=== PATIENT | female | born 1945 | race Caucasian/White ===

== ENCOUNTER 2020-04-23 01:41 | Inpatient (IN) | payer MEDICARE, SELFPAY ==
[2020-04-23] VITALS (18 sets, daily range): BP systolic 95–131; BP diastolic 48–80; PULSE 56–145; RESP 12–19; TEMP 36.2–37.1; O2SAT 97–100; BMI 33.4
--- NOTE | 2020-04-23 01:50 | XR_ITS ---
EXAMINATION: XR CHEST CLINICAL INFORMATION: Shortness of breath COMPARISON: 01/05/2018 TECHNIQUE: Frontal view of the chest was obtained. FINDINGS: Cardiac leads overlie the chest. Right chest wall port terminates near the cavoatrial junction. The lungs are well expanded. Patchy bilateral airspace opacities are noted. No pleural effusion or pneumothorax. No edema. The cardiomediastinal silhouette is unremarkable. Chronic left rib deformities. XR/XR chest 1V IMPRESSION: Patchy bilateral airspace opacities are noted which could be infectious or inflammatory.
--- NOTE | 2020-04-23 01:50 | ECG_ITS ---
Test Reason : TACHY Blood Pressure : / mmHG Vent. Rate : 144 BPM Atrial Rate : 288 BPM P-R Int : 000 ms QRS Dur : 082 ms QT Int : 188 ms P-R-T Axes : -82 069 245 degrees QTc Int : 291 ms Atrial flutter with 2:1 A-V conduction Marked ST abnormality, possible inferior subendocardial injury Abnormal ECG When compared with ECG of 08-JUN-2012 22:44, Atrial flutter has replaced Sinus rhythm ST now depressed in Inferior leads Heart rate has increased Referred By: Lenin Granger Electronically Signed By:BERYL MARIN MD
[2020-04-23] MEDS: dilTIAZem HCL 50 MG/10 ML VIAL 10 MG IVPUSH (01:58)
[2020-04-23 02:06] LABS: Hematocrit 29.2 % (37-47); Hemoglobin 9.8 g/dl (12.0-16.0); Imm Gran Abs Auto 0.03 X10*3/uL (0.00-0.03); Imm Gran Pct Auto 0.6 % (0.0-0.4); Lymphocytes Absolute Auto 0.3 X10*3/uL (1.2-4.9); Lymphocytes Percent Auto 6.2 % (20-40); MANUAL DIFF FLAG SCAN; Mean Corpuscular HGB Conc 33.6 g/dl (31.0-35.0); Mean Corpuscular Hemoglobin 33.9 pg (27.0-33.0); Mean Platelet Volume 9.2 fL (9.4-12.3); Monocytes Percent Auto 0.8 % (2-11); Neutrophils Absolute Auto 4.8 X10*3/uL (2.0-8.3); Neutrophils Percent Auto 92.4 % (45-73); Platelet Count 123 X10*3/uL (160-400); Red Blood Count 2.89 X10*6/uL (4.20-5.50); Red Cell Distribution Width 12.9 % (11.0-16.0); SCAN SMEAR FLAG 1; White Blood Count 5.2 X10*3/uL (4.8-10.8)
[2020-04-23 02:14] LABS: INTERNATIONAL NORM RATIO 1.2 (0.9-1.1); Prothrombin Time 13.8 SEC (10.8-13.0)
[2020-04-23 02:16] LABS: Partial Thromboplastin Time 38.6 SEC (24.1-38.0)
[2020-04-23] MEDS: dilTIAZem HCL 50 MG/10 ML VIAL 20 MG IVPUSH (02:16)
[2020-04-23 02:30] LABS: SLIDE REVIEW VERIFIED
--- NOTE | 2020-04-23 02:35 | PC.NURSE ---
diltizem increased to 15mg/hr per protocol. md stringer.
--- NOTE | 2020-04-23 02:40 | PC.NURSE ---
0150:Patient arrives ambulatory c/o sudden onset of dizziness, palpitiations, and sob. Patient to hr via home so2 monitor c/o rate of 160. Patient brought into bed 4. IV established: 18 lac. 10mg IVP dilt given. 0203: dilt drip mixed and given. pt has a signficant history of poor med compliance Sometimes I take my meds. some times I dont like how they make me feel. Patient was cardioverted at [facility] on 04/21. it didn't work too well. My heart rate didn't go back to normal until 0600 the next day. First 10mg did not have effect. 2nd dose of 20mg Diltizem given IVP. 2nd IV established 18 rt wrist.
[2020-04-23 02:43] LABS: Alanine Aminotransferase 34 U/L (0-31); Albumin Level 4.1 g/dL (3.5-5.0); Alkaline Phosphatase 64 U/L (39-117); Anion Gap 12 (12-20); Aspartate Amino Transferase 27 U/L (5-31); Bilirubin Direct 0.2 mg/dL (0.0-0.5); Bilirubin Total 0.2 mg/dL (0.0-1.0); Blood Urea Nitrogen 20 mg/dL (9-16); Calcium 8.6 mg/dL (8.4-10.2); Carbon Dioxide 28 mmol/L (22-29); Chloride 95 mmol/L (96-108); Creatinine Clr Calc Pharmacy 38.7; Estimated Glomerular Filt Rate 40; Glucose Random 124 mg/dL (60-115); Potassium 4.6 mmol/l (3.3-5.1); Sodium 130 mmol/L (135-145); Total Protein 6.8 g/dL (6.5-8.0)
[2020-04-23 02:48] LABS: Troponin-I High Sensitivity < 3.5 ng/L (<3.5-17.0)
--- NOTE | 2020-04-23 03:20 | CT_ITS ---
EXAMINATION: CT CHEST WITHOUT CONTRAST CLINICAL INFORMATION: Abnormal chest x-ray. History of lung cancer. COMPARISON: Chest radiograph from today. CT 07/10/2011 TECHNIQUE: Multidetector volumetric CT imaging of the chest was done. Axial MIP volume rendering provided. Sagittal and coronal reformatted images were obtained. This CT examination was performed using dose optimization techniques as appropriate, variously including the following: *Automated exposure control *Adjustment of mA and/or kV according to patient size (this includes techniques or standardized protocols for targeted exams where dose is matched to indication/reason for exam; i.e. extremities or head) *Use of iterative reconstruction technique DLP: 292 mGy-cm FINDINGS: LUNGS: The central airways are patent. Minimal streaky subpleural opacities favoring scarring. There is no dense consolidation. No pneumothorax. No suspicious pulmonary nodule. Nodularity along the periphery of the left midlung associated with chronic deformity of the ribs. MEDIASTINUM: Normal heart size. Coronary artery calcifications are present. Right internal jugular central venous catheter terminates at the right atrium. No mediastinal lymphadenopathy. No pericardial effusion. PLEURA: There is no pleural effusion. No pleural mass or thickening. AXILLA: No lymphadenopathy. UPPER ABDOMEN: No acute abnormality. Exophytic left renal cyst. OSSEOUS STRUCTURES: No acute or suspicious osseous abnormality. Chronic healed left rib fractures. CT/CT chest wo con IMPRESSION: No acute finding in the lungs. Areas of scarring are noted.
--- NOTE | 2020-04-23 03:28 | PC.NURSE ---
patient reports she was feeling very upset prior to this episode of tachycardia. patient reports feeling depressed due to having life expectancy only until october of this year. patient further feels upset that she must leave her residence due to finances. patient refused bedpan. patient assisted to commode.
[2020-04-23] MEDS: LORazepam 1 MG TABLET PO ×2 (03:40→20:11)
--- NOTE | 2020-04-23 03:56 | PM.IMHP ---
History of Present Illness Date of Service: 04/23/20 Chief Complaint: palpitations 89-year-old female with past medical history stage IV small cell lung cancer , DVT on Xarelto, hypertension fibromyalgia, diabetes, autoimmune disease who presents to the hospital with complaints of palpitation. Patient reports that on Monday she started feeling chest tightness which was localized midsternally, felt like heavy pressure like, radiating to the left arm, associated with shortness of breath. This chest pain occurred at rest with no relieving factors. Intermittent. patient reports that on Monday she went to her safety associate oncologist's office to start a new chemo and at their office was found to have a fluctuating heart rate between 33-177. Patient was feeling dizzy but had no chest pain at that time and no shortness of breath. She was sent back to the hospital and was diagnosed with AFib. Patient reports that her Xarelto was adjusted and her diltiazem was increased from 120-180 mg daily. Patient reports that she returned to the hospital today because she measured her heart rate prior to to going to bed and found to be in the 140s to 150s with dizziness. She currently has no shortness of breath, no chest pain, no dizziness, no cough or sputum production. She has no fever or chills. She reports nausea with no vomiting. No abdominal pain. No diarrhea but has constipation, no urinary symptoms and no lower extremity edema. No sick contacts and no recent travel. on arrival to the ED patient's heart rate was found to be 144, blood pressure 110/80 otherwise hemodynamically stable Labs are significant for hemoglobin of 9.8, hematocrit of 29.2,MCV of 101, platelet count of 123, PT of 13.8, INR of 1.2, sodium of 130, chloride of 95, BUN of 20, with a creatinine of 1.31, troponin of less than 3.5, BNP pending, chest x-ray shows patchy bilateral airspace opacities COVID19 19 pending past medical history: DVT on Xarelto, stage IV small cell lung cancer, hypertension, diabetes , cervical cancer status post total hysterectomy, fibromyalgia, history of CHF past surgical history: total hysterectomy, polyp removal Family history: Significant for cancer including pancreatic and lung, autoimmune disease, DVT social history: comes from home, ambulance independently , denies tobacco alcohol or illicit drugs at this time Review of Systems Review of Systems: Yes all other systems are reviewed and are negative FOR[facility]LY [facility] Medical History (Updated 04/23/20 @ 04:19 by Ursula Concepcion MD) Afib Diabetes mellitus type 2 in obese DVT (deep venous thrombosis) Fibromyalgia History of CHF (congestive heart failure) Hx of [facility] use of blood thinners Hypertension Lung cancer Ovarian tumor Small cell lung cancer Family History (Updated 04/23/20 @ 04:00 by Lenin Granger DO) Other Family history non-contributory Social History Alcohol intake: never Smoking Status: Former smoker Smoked in Last 30 Days: No Use of substances other than those prescribed or required for medical reasons: No Advance Directives: No Meds Allergies Allergy/AdvReac Type Severity Reaction Status Date / Time Sulfa (Sulfonamide Allergy Severe ANAPHYLAXIS, Unverified 04/23/20 02:42 Antibiotics) swelling sulfamethoxazole Allergy Severe ANAPHYLAXIS Unverified 04/23/20 02:42 [From BACTRIM] trimethoprim [From BACTRIM] Allergy Severe ANAPHYLAXIS Unverified 04/23/20 02:42 Wellbutrin Allergy Unknown seizures Unverified 04/23/20 02:42 Home Medications Medication Instructions Recorded Confirmed Type albuterol sulfate INHALATION 04/23/20 History budesonide-formoterol [Symbicort] INHALATION 04/23/20 History dexamethasone tab PO 04/23/20 History diltiazem HCl 1 cap PO DAILY 04/23/20 04/23/20 History diphenhydramine HCl [M-Dryl] PO 04/23/20 History duloxetine 1 cap PO DAILY 04/23/20 04/23/20 History fentanyl 1 patch TOPICAL Q3D 04/23/20 04/23/20 History hydrochlorothiazide 1 tab PO DAILY 04/23/20 04/23/20 History hydrocodone-acetaminophen 1 tab PO Q6H PRN 04/23/20 04/23/20 History lorazepam 1 tab PO BEDTIME PRN 04/23/20 04/23/20 History lorazepam 1 tab PO TID PRN 04/23/20 04/23/20 History metformin 1 tab PO BID 04/23/20 04/23/20 History morphine 1 tab PO Q12H 04/23/20 04/23/20 History omeprazole 1 cap PO BID 04/23/20 04/23/20 History pravastatin 40 mg PO 04/23/20 History rivaroxaban [Xarelto] 1 tab PO DAILY 04/23/20 04/23/20 History tiotropium bromide [Spiriva with 1 cap INHALATION DAILY 04/23/20 04/23/20 History HandiHaler] trazodone 1 - 2 tab PO BEDTIME 04/23/20 04/23/20 History zolpidem 1 tab PO BEDTIME PRN 04/23/20 04/23/20 History Physical Exam Vital Signs and Narrative: Vital Signs: Last Vital Signs Temp 98.5 F 04/23/20 01:47 Pulse 108 H 04/23/20 03:26 Resp 18 04/23/20 03:26 BP 111/67 04/23/20 03:26 Pulse Ox 100 04/23/20 03:26 Body Mass Index 33.4 Const: General: cooperative and no acute distress Orientation/consciousness: patient oriented x3 Eyes: General: appearance normal, both eyes and all related structures Pupils: Equal, round and reactive pupils present Resp: Effort & Inspection: normal respiratory effort and able to speak in complete sentences Auscultation: clear to auscultation bilaterally Cardio: Other: irregular rhythm, with a heart rate of 110s to 140s GI: Palpation (GI): Soft to palpation Auscultation: normal bowel sounds Skin: General skin exam: no rashes or lesions noted Neuro: General: patient oriented x3 Cranial nerves: Yes Equal, round and reactive pupils present Cognition (Neuro): normal cognition Extrem: General: Yes normal to inspection and Yes no pedal edema Results Labs CBC and Chem 7: 04/23/20 02:00 04/23/20 02:00 Labs: Laboratory Results - last 24 hr 04/23/20 04/23/20 04/23/20 02:00 02:00 02:00 MCV 101.0 H MCH 33.9 H MCHC 33.6 RDW 12.9 Plt Count 123 L MPV 9.2 L Immature Gran % (Auto) 0.6 H Neut % (Auto) 92.4 H Lymph % (Auto) 6.2 L [place] % (Auto) 0.8 L Eos % (Auto) 0.0 Baso % (Auto) 0.0 Lymph # (Auto) 0.3 L [place] # (Auto) 0.0 L Eos # (Auto) 0.0 Baso # (Auto) 0.0 Abs Immat Gran (auto) 0.03 Absolute Neuts (auto) 4.8 Absolute Nucleated RBC 0.000 Nucleated RBC % (auto) 0.0 Smear Tech's Comments VERIFIED PT 13.8 H INR 1.2 H APTT 38.6 H Anion Gap 12 Estim Creat Clear Calc 38.7 Estimated GFR 40 Random Glucose 124 H Calcium 8.6 Total Bilirubin 0.2 Direct Bilirubin 0.2 AST 27 ALT 34 H Alkaline Phosphatase 64 Troponin I High Sens Total Protein 6.8 Albumin 4.1 04/23/20 02:00 MCV MCH MCHC RDW Plt Count MPV Immature Gran % (Auto) Neut % (Auto) Lymph % (Auto) [place] % (Auto) Eos % (Auto) Baso % (Auto) Lymph # (Auto) [place]yer # (Auto) Eos # (Auto) Baso # (Auto) Abs Immat Gran (auto) Absolute Neuts (auto) Absolute Nucleated RBC Nucleated RBC % (auto) Smear Tech's Comments PT INR APTT Anion Gap Estim Creat Clear Calc Estimated GFR Random Glucose Calcium Total Bilirubin Direct Bilirubin AST ALT Alkaline Phosphatase Troponin I High Sens < 3.5 Total Protein Albumin Imaging Radiologist's Impressions: Impressions Chest X-Ray 04/23/20 01:50 IMPRESSION: Patchy bilateral airspace opacities are noted which could be infectious or inflammatory. Assessment and Plan (1) Atrial fibrillation with rapid ventricular response: Status: Acute (2) History of CHF (congestive heart failure): Status: Acute (3) Hypertension: Status: Acute (4) DVT (deep venous thrombosis): Status: Acute (5) Fibromyalgia: Status: Acute (6) Diabetes mellitus type 2 in obese: Status: Acute (7) Small cell lung cancer: Status: Acute 74 year old female with past medical history as above who presents to the hospital with palpitations found to have AFib with RVR. # AFib with RVR - appears to be new onset, patient does report history of CHF, denies any history of coronary artery disease - chest x-ray is revealing bilateral infiltrates, CT scan of the chest is pending - troponin negative - BNP is pending - Started on diltiazem drip in the ED, currently heart rate maintaining between 110s to 130s, with stable BP Plan: - Continue diltiazem drip - patient reports that she had an echocardiogram done at [facility] this week, will try to obtain records, otherwise will repeat echocardiogram - continue Xarelto, shortness of better blockage per Cardiology once patient off of diltiazem drip - cardiology consult - follow BNP and CT of the chest # history of congestive heart failure - patient rep history of heart failure but she is not on any diuretic at this time - Denies any shortness of breath, PND, orthopnea, or lower extremity edema plan: - Will obtain a BNP, chest x-ray is revealing infiltrates which is concerning for infection and not necessarily fluid overload - Will monitor and obtain recent echocardiogram from outside hospital # bilateral infiltrates - patient has no cough, no fever, no leukocytosis - CT scan, COVID-19, BNP pending - will follow results of CT scan and treat accordingly # anemia - microcytic - will order B12 as well as folic acid - threshold to transfuse hemoglobin of 7 # hypertension - stable - on diltiaze drip - continue hydrochlorothiazide - convert to p.o. medications once heart rate is more controlled # diabetes - on metformin- will hold - start low-dose sliding scale insulin, diabetic diet # small cell lung cancer - continue pain control - continue current treatment outpatient # fibromyalgia - continue duloxetine # anxiety - continue lorazepam DVT prophylaxis Xarelto
--- NOTE | 2020-04-23 03:59 | ED_ITS ---
HPI - Arrhythmia/Palpitations General Chief Complaint: Arrhythmia/Palpitations Stated Complaint: Palpitations Time Seen by Provider: 04/23/20 01:50 Source: patient Mode of arrival: ambulatory History of Present Illness HPI narrative: 74-year-old female with a recent diagnosis of atrial fibrillation, came in for rapid heart rate. Patient states approximately 7 or 20:00 tonight felt her heart race. States it continued to fluctuate up and down however most recently prior to ER visit felt a little dizzy? and came into the emergency department. Patient experienced no chest pain. No diaphoresis. No shortness of breath. Patient denies recent illness with fevers or chills. Denies nausea vomiting. Denies diaphoresis I was present on arrival to emergency department secondary to heart rate in the 150s MD complaint: heart racing Duration: intermittent Severity: moderate Related Data Home Medications Medication Instructions Recorded Confirmed albuterol sulfate INHALATION 04/23/20 budesonide-formoterol [Symbicort] INHALATION 04/23/20 dexamethasone tab PO 04/23/20 diltiazem HCl 1 cap PO DAILY 04/23/20 04/23/20 diphenhydramine HCl [M-Dryl] PO 04/23/20 duloxetine 1 cap PO DAILY 04/23/20 04/23/20 fentanyl 1 patch TOPICAL Q3D 04/23/20 04/23/20 hydrochlorothiazide 1 tab PO DAILY 04/23/20 04/23/20 hydrocodone-acetaminophen 1 tab PO Q6H PRN 04/23/20 04/23/20 lorazepam 1 tab PO BEDTIME PRN 04/23/20 04/23/20 lorazepam 1 tab PO TID PRN 04/23/20 04/23/20 metformin 1 tab PO BID 04/23/20 04/23/20 morphine 1 tab PO Q12H 04/23/20 04/23/20 omeprazole 1 cap PO BID 04/23/20 04/23/20 pravastatin 40 mg PO 04/23/20 rivaroxaban [Xarelto] 1 tab PO DAILY 04/23/20 04/23/20 tiotropium bromide [Spiriva with 1 cap INHALATION DAILY 04/23/20 04/23/20 HandiHaler] trazodone 1 - 2 tab PO BEDTIME 04/23/20 04/23/20 zolpidem 1 tab PO BEDTIME PRN 04/23/20 04/23/20 Allergies Allergy/AdvReac Type Severity Reaction Status Date / Time Sulfa (Sulfonamide Allergy Severe ANAPHYLAXIS, Unverified 04/23/20 02:42 Antibiotics) swelling sulfamethoxazole Allergy Severe ANAPHYLAXIS Unverified 04/23/20 02:42 [From BACTRIM] trimethoprim [From BACTRIM] Allergy Severe ANAPHYLAXIS Unverified 04/23/20 02:42 Wellbutrin Allergy Unknown seizures Unverified 04/23/20 02:42 Review of Systems Review of Systems: Constitutional : No Weight loss, No Fever, No Chills, No Night Sweats, No Fatigue, No Malaise ENT/Mouth : No Hearing loss, No Ear Pain, No Nasal Congestion, No Sinus Pain, No Hoarseness, No sore throat, No Rhinorrhea, No Swallowing Difficulty Eyes: No Eye Pain, No Swelling, No Redness, No Foreign Body, No Discharge, No Vision Changes Cardiovascular : No Chest Pain, No SOB, No Dyspnea on Exertion, No Orthopnea, No Edema, positive Palpitations Respiratory : No Cough, No Sputum, No Wheezing, No Smoke Exposure, No Dyspnea Gastrointestinal : No Nausea, No Vomiting, No Diarrhea, No Constipation, No abdominal Pain, No Hematochezia, No Melena Genitourinary : no irregular bleeding, No Dysuria, No Urinary Frequency, No Hematuria, No Urinary Incontinence, No Urgency, No Flank Pain, No Urinary Flow Changes, No Hesitancy Musculoskeletal : No joint pain, No Myalgias, No Joint Swelling Skin : No Skin Lesions, No rash Neuro : No Weakness, No Numbness, No Paresthesias, No Loss of Consciousness, mild Dizziness, No Headache Psych : No Anxiety/Panic, No Depression, No SI/HI/AH/VH, No Social Issues, Heme/Lymph: No Bruising, No Bleeding,No Lymphadenopathy Endocrine : No Polyuria, No Polydipsia, No Temperature Intolerance [facility] Past Medical History Medical History (Updated 04/23/20 @ 04:19 by Ursula Concepcion MD) Afib Diabetes mellitus type 2 in obese DVT (deep venous thrombosis) Fibromyalgia History of CHF (congestive heart failure) Hx of nursing home use of blood thinners Hypertension Lung cancer Ovarian tumor Small cell lung cancer Family History Family History (Updated 04/23/20 @ 04:00 by Lenin Granger DO) Other Family history non-contributory Social History Social History Alcohol intake: never Smoking Status: Former smoker Smoked in Last 30 Days: No Use of substances other than those prescribed or required for medical reasons: No Advance Directives: No Physical Exam Vital Signs: Vital Signs: Last Vital Signs Temp 98.5 F 04/23/20 01:47 Pulse 108 H 04/23/20 03:26 Resp 18 04/23/20 03:26 BP 111/67 04/23/20 03:26 Pulse Ox 100 04/23/20 03:26 Body Mass Index 33.4 Vital signs reviewed Appearance: Alert. Oriented X3. Mild acute distress. Eyes: Pupils equal, round and reactive to light. ENT: Pharynx normal. Neck: Normal inspection. Neck supple. No lymph nodes noted. No crepitus CVS: Elevated heart rate and abnormal rhythm. Pulses normal. Normal S1 and S2 Respiratory: No respiratory distress. Breath sounds normal. No Wheezing. No rales Abdomen: Soft and nontender. No rigidity. No distention. good BS x4 Skin: Skin warm and dry. Normal skin color. Normal skin turgor. Extremities: No lower extremity edema. Neurovascular intact to all extremities. No Lacerations. No Rash Neuro: Oriented X 3. No motor deficit. No sensory deficit. Moving all extermities. No slurred speech. Course Course Course Narrative: Multiple re-evaluations were done by me while in the emergency department. Patient's heart rate was in the 150s, in which 10 mg of Cardizem IV push did not work. I then reordered a 20 mg dose of IV Cardizem which did work. Heart rate then succeeded down to 90s patient was then started on a drip throughout ER visit patient's heart rate did fluctuate up to 120 in which the Cardizem drip was increased under the direction of me. Patient experienced no chest pain throughout ER visit. Chest x-ray does show bilateral opacities however no white count and no fevers or chills. Will get a CT scan noncontrast to rule out any infection possibility I spoke with hospitalist will admit patient Dr. Cunningham Throughout ER visit patient has not lost consciousness nor has become altered. Patient agrees with admission CT scan of the chest shows no acute infection. Will not treat I do not have a suspicion of infection at this point. COVID negative Laboratory and radiology results reviewed by me MDM - Arrhythmia/Palpitations MDM Narrative Medical decision making narrative: 74-year-old female with a history of breast cancer with recent diagnosis of atrial fibrillation, was evaluated in the emergency department for rapid AFib. Treated and maintained on IV Cardizem. Will need admission for further treatment and evaluation Medical Records Attestation: I reviewed the patient's medical records. Lab Data Attestation: I reviewed the patient's lab results. Result diagrams: 04/23/20 02:00 04/23/20 02:00 Labs: Lab Results 04/23/20 04/23/20 04/23/20 Range/Units 02:00 02:00 02:00 WBC 5.2 (4.8-10.8) X10*3/uL RBC 2.89 L (4.20-5.50) X10*6/uL Hgb 9.8 L (12.0-16.0) g/dl Hct 29.2 L (37-47) % MCV 101.0 H (80-98) fL MCH 33.9 H (27.0-33.0) pg MCHC 33.6 (31.0-35.0) g/dl RDW 12.9 (11.0-16.0) % Plt Count 123 L (160-400) X10*3/uL MPV 9.2 L (9.4-12.3) fL Immature Gran % (Auto) 0.6 H (0.0-0.4) % Neut % (Auto) 92.4 H (45-73) % Lymph % (Auto) 6.2 L (20-40) % [place] % (Auto) 0.8 L (2-11) % Eos % (Auto) 0.0 (0-4) % Baso % (Auto) 0.0 (0-2) % Lymph # (Auto) 0.3 L (1.2-4.9) X10*3/uL [place] # (Auto) 0.0 L (0.1-1.2) X10*3/uL Eos # (Auto) 0.0 (0.0-0.4) X10*3/uL Baso # (Auto) 0.0 (0.0-0.2) X10*3/uL Abs Immat Gran (auto) 0.03 (0.00-0.03) X10*3/uL Absolute Neuts (auto) 4.8 (2.0-8.3) X10*3/uL Absolute Nucleated RBC 0.000 (0.0-0.012) X10*3/uL Nucleated RBC % (auto) 0.0 (0.0-0.2) /100WBC Smear Tech's Comments VERIFIED PT 13.8 H (10.8-13.0) SEC INR 1.2 H (0.9-1.1) APTT 38.6 H (24.1-38.0) SEC Sodium 130 L (135-145) mmol/L Potassium 4.6 (3.3-5.1) mmol/l Chloride 95 L (96-108) mmol/L Carbon Dioxide 28 (22-29) mmol/L Anion Gap 12 (12-20) BUN 20 H (9-16) mg/dL Creatinine 1.31 (0.5-1.4) mg/dL Estim Creat Clear Calc 38.7 Estimated GFR 40 Random Glucose 124 H (60-115) mg/dL Calcium 8.6 (8.4-10.2) mg/dL Total Bilirubin 0.2 (0.0-1.0) mg/dL Direct Bilirubin 0.2 (0.0-0.5) mg/dL AST 27 (5-31) U/L ALT 34 H (0-31) U/L Alkaline Phosphatase 64 (39-117) U/L Troponin I High Sens (<3.5-17.0) ng/L B-Natriuretic Peptide (<100) pg/mL Total Protein 6.8 (6.5-8.0) g/dL Albumin 4.1 (3.5-5.0) g/dL Coronavirus (PCR) (Negative) Influenza Type A (PCR) (Negative) Influenza Type B (PCR) (Negative) RSV RNA Qual (PCR) (Negative) 04/23/20 04/23/20 Range/Units 02:00 03:45 WBC (4.8-10.8) X10*3/uL RBC (4.20-5.50) X10*6/uL Hgb (12.0-16.0) g/dl Hct (37-47) % MCV (80-98) fL MCH (27.0-33.0) pg MCHC (31.0-35.0) g/dl RDW (11.0-16.0) % Plt Count (160-400) X10*3/uL MPV (9.4-12.3) fL Immature Gran % (Auto) (0.0-0.4) % Neut % (Auto) (45-73) % Lymph % (Auto) (20-40) % [place] % (Auto) (2-11) % Eos % (Auto) (0-4) % Baso % (Auto) (0-2) % Lymph # (Auto) (1.2-4.9) X10*3/uL [place] # (Auto) (0.1-1.2) X10*3/uL Eos # (Auto) (0.0-0.4) X10*3/uL Baso # (Auto) (0.0-0.2) X10*3/uL Abs Immat Gran (auto) (0.00-0.03) X10*3/uL Absolute Neuts (auto) (2.0-8.3) X10*3/uL Absolute Nucleated RBC (0.0-0.012) X10*3/uL Nucleated RBC % (auto) (0.0-0.2) /100WBC Smear Tech's Comments PT (10.8-13.0) SEC INR (0.9-1.1) APTT (24.1-38.0) SEC Sodium (135-145) mmol/L Potassium (3.3-5.1) mmol/l Chloride (96-108) mmol/L Carbon Dioxide (22-29) mmol/L Anion Gap (12-20) BUN (9-16) mg/dL Creatinine (0.5-1.4) mg/dL Estim Creat Clear Calc Estimated GFR Random Glucose (60-115) mg/dL Calcium (8.4-10.2) mg/dL Total Bilirubin (0.0-1.0) mg/dL Direct Bilirubin (0.0-0.5) mg/dL AST (5-31) U/L ALT (0-31) U/L Alkaline Phosphatase (39-117) U/L Troponin I High Sens < 3.5 (<3.5-17.0) ng/L B-Natriuretic Peptide 252 H (<100) pg/mL Total Protein (6.5-8.0) g/dL Albumin (3.5-5.0) g/dL Coronavirus (PCR) NEGATIVE (Negative) Influenza Type A (PCR) NEGATIVE (Negative) Influenza Type B (PCR) NEGATIVE (Negative) RSV RNA Qual (PCR) NEGATIVE (Negative) ECG Data Attestation: I personally reviewed and interpreted this ECG as follows: Interpretation: EKG 1. At 00:51 144 beats per minute, a flutter, normal axis. Nonspecific ST changes EKG 2. At 02:17 82 beats per minute atrial flutter. Normal axis nonspecific ST- T changes Critical Care Time Critical Care Time Critical Care Time: Yes Total Critical Care Time: 35 Attestation: I attest to my critical time spent with patient Discharge Plan Discharge Clinical Impression: Anxiety, Palpitations, Atrial fibrillation with rapid ventricular response Patient Disposition: Admitted As Inpatient
[2020-04-23 04:16] LABS: B Type Natriuretic Peptide 252 pg/mL (<100)
[2020-04-23 04:38] LABS: Influenza A PCR NEGATIVE (Negative); Influenza B PCR NEGATIVE (Negative); Resp Syncy Virus RNA Qual PCR NEGATIVE (Negative); SARS COV2 PCR INHOUSE NEGATIVE (Negative)
[2020-04-23] MEDS: dilTIAZem HCL 125 MG in 0.9 % Sodium Chloride 100 ML 15 MG IVCONT (07:05)
[2020-04-23 08:03] LABS: Glucose, Whole Blood 121 mg/dL (60-115)
[2020-04-23] MEDS: DULoxetine HCl 30 MG CAPSULE.DR PO (08:26)
[2020-04-23] MEDS: Omeprazole 20 MG CAPSULE.DR PO ×2 (08:26→20:07)
[2020-04-23] MEDS: hydroCHLOROthiazide 25 MG TABLET PO (08:26)
[2020-04-23] MEDS: Morphine Sulfate ER 30 MG TABLET.ER PO (08:27)
[2020-04-23 09:00] LABS: Folate 9.6 ng/mL (> or = 4.0); Vitamin B12 309 pg/mL (200-900)
[2020-04-23] MEDS: Rivaroxaban 15 MG TABLET PO (09:23)
[2020-04-23] MEDS: 0.9 % Sodium Chloride Flush 3 ML SYRINGE IVFLUSH ×2 (09:23→16:57)
[2020-04-23] MEDS: dilTIAZem HCL CD 240 MG CAP.ER.DEG PO (10:08)
--- NOTE | 2020-04-23 10:24 | MHC.CM.PN ---
CM met with Patient. Patient presently lives with 2 disabled individuals and she has been their Principal Strategist. Patient has found other homes for these individuals r/t her own health issues and she will now be living alone in a 2 family house with her 2 Sons living upstairs. Patient's goal is to return home, no services, as before and CM has initiated and will follow for dc planning. IMM addressed with Patient and the original has been given to her and a copy has been placed on the chart. PCP is Dr. Rad Jane and Patient's Sister is her HCP.
[2020-04-23 11:32] LABS: Glucose, Whole Blood 101 mg/dL (60-115)
--- NOTE | 2020-04-23 11:56 | P.CONCA_ITS ---
History of Present Illness History of Present Illness Date of Service: 04/23/20 Requesting physician: Stephenie Gore Chief complaint: Afib with RVR Narrative: 74-year-old female with small cell lung cancer who is on chemotherapy and is presenting with the tachycardia and atrial fibrillation with rapid ventricular response. She said she has been on a new chemotherapy agent and received it last . That made her very tired and she was not feeling well after the chemotherapy. She said in the preceding week she presented to [facility] with chest heaviness and underwent CT chest to rule out pulmonary embolism. She said at that time she had atrial fibrillation and was cardioverted. Last night she was lying in bed and fell mild left-sided pressure and she checked her heart rate which was 160 beats per minutes. She decided to come to the ER. She is saying she did not feel any palpitations. Since then she received Cardizem and it appears this morning she reverted back to sinus rhythm. She has factor 5 Leiden reportedly and had DVTs in the past and has been on Xarelto. She has some dyspnea but no significant change in symptoms. Review of Systems Review of Systems: No symptoms right now. 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 If so, by whom?: No Do you feel safe in your current relationship?: No Is there a partner from a previous relationship who is making you feel unsafe now?: No Are you made to feel afraid or neglected: No Advance Directives: No Do you have thoughts of harming others: None Do you have a plan to hurt others: No Plan Recently lost weight without trying: No service: No Current occupational status: retired Meds Allergies Allergy/AdvReac Type Severity Reaction Status Date / Time Sulfa (Sulfonamide Allergy Severe ANAPHYLAXIS, Verified 04/23/20 06:30 Antibiotics) swelling sulfamethoxazole Allergy Severe ANAPHYLAXIS Verified 04/23/20 06:30 [From BACTRIM] trimethoprim [From BACTRIM] Allergy Severe ANAPHYLAXIS Verified 04/23/20 06:30 Wellbutrin Allergy Unknown seizures Verified 04/23/20 06:30 Home Medications Medication Instructions Recorded Confirmed Type albuterol sulfate 1 inh INHALATION QID PRN 04/23/20 04/23/20 History budesonide-formoterol [Symbicort] 2 puff INHALATION BID 04/23/20 04/23/20 History dexamethasone 4 mg PO BID 04/23/20 04/23/20 History diltiazem HCl 1 cap PO DAILY 04/23/20 04/23/20 History diphenhydramine HCl [M-Dryl] 12.5 mg PO QID PRN 04/23/20 04/23/20 History duloxetine 1 cap PO DAILY 04/23/20 04/23/20 History fentanyl 1 patch TOPICAL Q3D 04/23/20 04/23/20 History hydrochlorothiazide 1 tab PO DAILY 04/23/20 04/23/20 History hydrocodone-acetaminophen 1 tab PO Q6H PRN 04/23/20 04/23/20 History lorazepam 1 tab PO BEDTIME PRN 04/23/20 04/23/20 History lorazepam 1 tab PO TID PRN 04/23/20 04/23/20 History metformin 1 tab PO BID 04/23/20 04/23/20 History morphine 1 tab PO Q12H 04/23/20 04/23/20 History omeprazole 1 cap PO BID 04/23/20 04/23/20 History pravastatin 40 mg PO BEDTIME 04/23/20 04/23/20 History rivaroxaban [Xarelto] 1 tab PO DAILY 04/23/20 04/23/20 History tiotropium bromide [Spiriva with 1 cap INHALATION DAILY 04/23/20 04/23/20 History HandiHaler] trazodone 1 - 2 tab PO BEDTIME 04/23/20 04/23/20 History zolpidem 1 tab PO BEDTIME PRN 04/23/20 04/23/20 History Physical Exam Vital Signs: Vital Signs: Last Vital Signs Temp 98.3 F 04/23/20 11:37 Pulse 72 04/23/20 11:37 Resp 16 04/23/20 11:37 BP 106/55 L 04/23/20 11:37 Pulse Ox 99 04/23/20 11:37 Body Mass Index 33.4 GENERAL APPEARANCE: in no acute distress. HEENT: unremarkable. HEAD: normocephalic, atraumatic. NECK/THYROID: no carotid bruit, Mild JVD. SKIN: no suspicious lesions, warm and dry. HEART: no murmurs, regular rate and rhythm, S1, S2 normal. LUNGS: few crackles at bases. ABDOMEN: normal, bowel sounds present, soft, nontender, nondistended. EXTREMITIES: no clubbing, cyanosis, or edema. PERIPHERAL PULSES: equal. NEUROLOGIC: nonfocal, alert and oriented. PSYCH: mood/affect full range. Results Labs and Meds Result diagrams: 04/23/20 02:00 04/23/20 02:00 Lab results: Laboratory Results - last 24 hr 04/23/20 04/23/20 04/23/20 02:00 02:00 02:00 WBC 5.2 RBC 2.89 L Hgb 9.8 L Hct 29.2 L MCV 101.0 H MCH 33.9 H MCHC 33.6 RDW 12.9 Plt Count 123 L MPV 9.2 L Immature Gran % (Auto) 0.6 H Neut % (Auto) 92.4 H Lymph % (Auto) 6.2 L [place] % (Auto) 0.8 L Eos % (Auto) 0.0 Baso % (Auto) 0.0 Lymph # (Auto) 0.3 L [place] # (Auto) 0.0 L Eos # (Auto) 0.0 Baso # (Auto) 0.0 Abs Immat Gran (auto) 0.03 Absolute Neuts (auto) 4.8 Absolute Nucleated RBC 0.000 Nucleated RBC % (auto) 0.0 Smear Tech's Comments VERIFIED PT 13.8 H INR 1.2 H APTT 38.6 H Sodium 130 L Potassium 4.6 Chloride 95 L Carbon Dioxide 28 Anion Gap 12 BUN 20 H Creatinine 1.31 Estim Creat Clear Calc 38.7 Estimated GFR 40 POC Glucose Random Glucose 124 H Calcium 8.6 Total Bilirubin 0.2 Direct Bilirubin 0.2 AST 27 ALT 34 H Alkaline Phosphatase 64 Troponin I High Sens B-Natriuretic Peptide Total Protein 6.8 Albumin 4.1 Vitamin B12 Folate Coronavirus (PCR) Influenza Type A (PCR) Influenza Type B (PCR) RSV RNA Qual (PCR) 04/23/20 04/23/20 04/23/20 02:00 03:45 06:15 WBC RBC Hgb Hct MCV MCH MCHC RDW Plt Count MPV Immature Gran % (Auto) Neut % (Auto) Lymph % (Auto) [place] % (Auto) Eos % (Auto) Baso % (Auto) Lymph # (Auto) [place] # (Auto) Eos # (Auto) Baso # (Auto) Abs Immat Gran (auto) Absolute Neuts (auto) Absolute Nucleated RBC Nucleated RBC % (auto) Smear Tech's Comments PT INR APTT Sodium Potassium Chloride Carbon Dioxide Anion Gap BUN Creatinine Estim Creat Clear Calc Estimated GFR POC Glucose Random Glucose Calcium Total Bilirubin Direct Bilirubin AST ALT Alkaline Phosphatase Troponin I High Sens < 3.5 B-Natriuretic Peptide 252 H Total Protein Albumin Vitamin B12 309 Folate 9.6 Coronavirus (PCR) NEGATIVE Influenza Type A (PCR) NEGATIVE Influenza Type B (PCR) NEGATIVE RSV RNA Qual (PCR) NEGATIVE 04/23/20 04/23/20 07:45 11:24 WBC RBC Hgb Hct MCV MCH MCHC RDW Plt Count MPV Immature Gran % (Auto) Neut % (Auto) Lymph % (Auto) [place] % (Auto) Eos % (Auto) Baso % (Auto) Lymph # (Auto) [place] # (Auto) Eos # (Auto) Baso # (Auto) Abs Immat Gran (auto) Absolute Neuts (auto) Absolute Nucleated RBC Nucleated RBC % (auto) Smear Tech's Comments PT INR APTT Sodium Potassium Chloride Carbon Dioxide Anion Gap BUN Creatinine Estim Creat Clear Calc Estimated GFR POC Glucose 121 H 101 Random Glucose Calcium Total Bilirubin Direct Bilirubin AST ALT Alkaline Phosphatase Troponin I High Sens B-Natriuretic Peptide Total Protein Albumin Vitamin B12 Folate Coronavirus (PCR) Influenza Type A (PCR) Influenza Type B (PCR) RSV RNA Qual (PCR) Assessment and Plan (1) Small cell lung cancer: Status: Acute (2) Atrial fibrillation with rapid ventricular response: Status: Acute (3) History of CHF (congestive heart failure): Status: Acute 74-year-old female who is presenting with tachycardia. She recently had atrial fibrillation rapid ventricular response and underwent cardioversion at [facility]. She has been on Xarelto for DVT. telemetry showed atrial fibrillation with rapid ventricular response but she has reverted back to sinus rhythm now. She looks mildly overloaded. I think she should get 20 of Lasix. she did not notice any symptoms other than mild chest pressure when she developed AFib. I think she needs cardiac event monitor as outpatient to assess frequency of AFib episodes. If she has significant episodes then she may need a rhythm control strategy. She is on chemotherapy for small cell lung cancer. I think if she stays stable and she can be sent home. We will arrange follow-up in our office and we will arrange a cardiac event monitor. Thank you for allowing me to participate in the care of your patient. Please feel free to con tact me if you have any questions.
[2020-04-23] MEDS: Furosemide 20 MG/2 ML VIAL IVPUSH (13:47)
--- NOTE | 2020-04-23 14:51 | ECG_ITS ---
Test Reason : afib with rvr Blood Pressure : / mmHG Vent. Rate : 068 BPM Atrial Rate : 068 BPM P-R Int : 140 ms QRS Dur : 086 ms QT Int : 404 ms P-R-T Axes : 075 070 069 degrees QTc Int : 429 ms Normal sinus rhythm Normal ECG When compared with ECG of 23-APR-2020 19:53, Sinus rhythm has replaced Atrial flutter Vent. rate has decreased BY [address] no longer depressed in Inferior leads ST no longer depressed in Lateral leads T wave inversion no longer evident in Inferior leads T wave inversion no longer evident in Anterolateral leads Referred By: Nilay Ghosh Electronically Signed By:TONI MELGOZA MD
--- NOTE | 2020-04-23 18:01 | PC.NURSE ---
Patient's HR converted to normal sinus rhythm at 0935. Dr. Gore aware. Cardizem 240 mg ordered/administered. Cardizem drip discontinued. Vital signs stable. Will continue to monitor.
--- NOTE | 2020-04-23 19:43 | ECG_ITS ---
Test Reason : INCREASED HR Blood Pressure : / mmHG Vent. Rate : 153 BPM Atrial Rate : 306 BPM P-R Int : 000 ms QRS Dur : 080 ms QT Int : 216 ms P-R-T Axes : 267 070 248 degrees QTc Int : 344 ms Atrial flutter with 2:1 A-V conduction Marked ST abnormality, possible inferior subendocardial injury Marked ST abnormality, possible anterolateral subendocardial injury Abnormal ECG When compared with ECG of Heart rate has increased Referred By: Ursula Concepcion Electronically Signed By:BERYL MARIN MD
[2020-04-23] MEDS: Metoprolol Tartrate 5 MG/5 ML VIAL IVPUSH (20:05)
[2020-04-23 20:29] LABS: Glucose, Whole Blood 121 mg/dL (60-115)
[2020-04-23] MEDS: dilTIAZem HCL 125 MG in 0.9 % Sodium Chloride 100 ML 10 MG IVCONT (22:47)
[2020-04-23] MEDS: Zolpidem Tartrate 5 MG TABLET 10 MG PO (23:18)
--- NOTE | 2020-04-23 23:53 | ECG_ITS ---
Test Reason : TACHY Blood Pressure : / mmHG Vent. Rate : 082 BPM Atrial Rate : 286 BPM P-R Int : 000 ms QRS Dur : 084 ms QT Int : 352 ms P-R-T Axes : 263 065 -15 degrees QTc Int : 411 ms Atrial flutter with variable A-V block ST & T wave abnormality, consider inferior ischemia Abnormal ECG When compared with ECG of 23-APR-2020 01:51, Vent. rate has decreased BY [address] less depressed in Inferior leads Inverted T waves have replaced nonspecific T wave abnormality in Inferior leads Nonspecific T wave abnormality has replaced inverted T waves in Lateral leads Referred By: Ursula Concepcion Electronically Signed By:BERYL MARIN MD
[2020-04-24] VITALS (13 sets, daily range): BP systolic 92–121; BP diastolic 53–96; PULSE 54–149; RESP 16–18; TEMP 36.1–37.1; O2SAT 95–97; BMI 32.8
--- NOTE | 2020-04-24 00:14 | PC.NURSE ---
pt aflutter on tele rate 140s-150s. states she has occasional palpitations, but no chest discomfort. b/p stable, no dizziness. md made aware. one time dose 5mg IV metoprolol given, HR then 70s-80s aflutter and returned to 150s. md made aware, cardizem drip ordered and started at 10 mg/hr per protocol, then increased to 15 mg/hr for HR in 150s. approx 2330 converted to NSR on tele. EKG confirmed, MD aware. cardizem drip held. PO metoprolol ordered.
[2020-04-24] MEDS: Metoprolol Tartrate 12.5 MG HALFTAB PO (00:41)
[2020-04-24] MEDS: 0.9 % Sodium Chloride Flush 3 ML SYRINGE IVFLUSH ×4 (00:42→21:12)
[2020-04-24 05:11] LABS: MANUAL DIFF FLAG NO
[2020-04-24 05:12] LABS: Basophils Percent Auto 0.3 % (0-2); Eosinophils Absolute Auto 0.1 X10*3/uL (0.0-0.4); Hematocrit 26.2 % (37-47); Hemoglobin 8.6 g/dl (12.0-16.0); Imm Gran Abs Auto 0.02 X10*3/uL (0.00-0.03); Imm Gran Pct Auto 0.5 % (0.0-0.4); Lymphocytes Absolute Auto 0.9 X10*3/uL (1.2-4.9); Lymphocytes Percent Auto 24.7 % (20-40); Mean Corpuscular HGB Conc 32.8 g/dl (31.0-35.0); Mean Corpuscular Hemoglobin 33.2 pg (27.0-33.0); Mean Corpuscular Volume 101.2 fL (80-98); Mean Platelet Volume 9.1 fL (9.4-12.3); Monocytes Percent Auto 1.1 % (2-11); Neutrophils Absolute Auto 2.6 X10*3/uL (2.0-8.3); Neutrophils Percent Auto 70.4 % (45-73); Red Blood Count 2.59 X10*6/uL (4.20-5.50); Red Cell Distribution Width 12.9 % (11.0-16.0); White Blood Count 3.6 X10*3/uL (4.8-10.8)
[2020-04-24 05:15] LABS: Platelet Count 80 X10*3/uL (160-400)
[2020-04-24 05:36] LABS: Anion Gap 12 (12-20); Blood Urea Nitrogen 20 mg/dL (9-16); Calcium 8.6 mg/dL (8.4-10.2); Carbon Dioxide 29 mmol/L (22-29); Chloride 94 mmol/L (96-108); Creatinine Clr Calc Pharmacy 42.9; Estimated Glomerular Filt Rate 45; Glucose Random 93 mg/dL (60-115); Potassium 4.6 mmol/l (3.3-5.1); Sodium 130 mmol/L (135-145)
--- NOTE | 2020-04-24 05:55 | MHC.PIE ---
P.RAPID A FIB/FLUTTER I.PT RETURNED TO RAPID AFIB/FLUTTER,HR 140-150,BP 117/80.CARDIZEM DRIP RESUMED AT 15MG/HR. UPDATED AND AWARE.NO FURTHER ORDERS. E.CONT TO MONITOR.
--- NOTE | 2020-04-24 07:56 | ECG_ITS ---
Test Reason : routine Blood Pressure : / mmHG Vent. Rate : 061 BPM Atrial Rate : 061 BPM P-R Int : 142 ms QRS Dur : 086 ms QT Int : 426 ms P-R-T Axes : 063 068 067 degrees QTc Int : 428 ms Poor data quality Normal sinus rhythm Possible Left atrial enlargement Nonspecific ST and T wave abnormality Abnormal ECG When compared to the previous EKG of Nonspecific ST and T wave abnormality are now Present Referred By: Nilay Ghosh Electronically Signed By:TONI MELGOZA MD
[2020-04-24 08:05] LABS: Glucose, Whole Blood 100 mg/dL (60-115)
[2020-04-24] MEDS: Omeprazole 20 MG CAPSULE.DR PO ×2 (08:36→21:11)
[2020-04-24] MEDS: DULoxetine HCl 30 MG CAPSULE.DR PO (08:36)
[2020-04-24] MEDS: hydroCHLOROthiazide 25 MG TABLET PO (08:36)
[2020-04-24] MEDS: Metoprolol Tartrate 12.5 MG HALFTAB 25 MG PO (08:37)
[2020-04-24] MEDS: dilTIAZem HCL CD 240 MG CAP.ER.DEG PO (08:37)
[2020-04-24] MEDS: Morphine Sulfate ER 30 MG TABLET.ER PO ×2 (08:37→21:10)
[2020-04-24] MEDS: Rivaroxaban 15 MG TABLET PO (08:37)
--- NOTE | 2020-04-24 08:49 | P.CDIC_ITS ---
CDI Concurrent Query Service Date: 04/24/20 Documentation Clarification: Please clarify if you are treating a proba ble/suspected/likely or confirmed: Hyponatremia Please specify if known or other Provider Response: Other Other Diagnosis: hyponatremia PLEASE DO NOT DELETE/MODIFY EXISTING CONTENT Additional information is needed in order to code to the highest accuracy and appropriate Severity of Illness (SOI). Please clarify the information noted below in your progress notes and discharge summary. Risk Factors/Clinical Indicators/Treatments Lab findings: Sodium 130 L IV fluids. Dizzy CDS: Lanette King CCS, CDIS Contact Number: [phone] Please Review the information above and exercise your independent professional judgment in responding to the query. If you concur, pleas document in the PROGRESS NOTES and DISCHARGE SUMMARY. If you do not agree with the query, please document in the query above. THIS QUERY IS PART OF THE PERMANENT MEDICAL RECORD
[2020-04-24 11:34] LABS: Glucose, Whole Blood 94 mg/dL (60-115)
--- NOTE | 2020-04-24 11:41 | P.PNCA_ITS ---
Subjective Subjective Date of Service: 04/24/20 Interval history: She had AFib with RVR overnight and required Cardizem drip. She reverted back to sinus rhythm this morning. She is off the Cardizem drip now. She is saying she is feeling good. She had some palpitations off and on overnight when she was in AFib. Review of Systems Review of Systems Palpitations, dyspnea Yes all other systems are reviewed and are negative Physical Exam Vital Signs: Last Vital Signs Temp 97.0 F 04/24/20 11:13 Pulse 70 04/24/20 11:13 Resp 18 04/24/20 11:13 BP 111/70 04/24/20 11:13 Pulse Ox 97 04/24/20 11:13 Body Mass Index 32.8 GENERAL APPEARANCE: in no acute distress. HEENT: unremarkable. HEAD: normocephalic, atraumatic. NECK/THYROID: no carotid bruit SKIN: no suspicious lesions, warm and dry. HEART: no murmurs, regular rate and rhythm, S1, S2 normal. LUNGS: few crackles at bases. ABDOMEN: normal, bowel sounds present, soft, nontender, nondistended. EXTREMITIES: no clubbing, cyanosis, or edema. PERIPHERAL PULSES: equal. NEUROLOGIC: nonfocal, alert and oriented. PSYCH: mood/affect full range. Results Labs and Meds Result diagrams: 04/24/20 04:52 04/24/20 04:46 Lab results: Laboratory Results - last 24 hr 04/23/20 04/24/20 04/24/20 20:23 04:46 04:52 WBC 3.6 L RBC 2.59 L Hgb 8.6 L Hct 26.2 L MCV 101.2 H MCH 33.2 H MCHC 32.8 RDW 12.9 Plt Count 80 L D MPV 9.1 L Immature Gran % (Auto) 0.5 H Neut % (Auto) 70.4 Lymph % (Auto) 24.7 [place] % (Auto) 1.1 L Eos % (Auto) 3.0 Baso % (Auto) 0.3 Lymph # (Auto) 0.9 L [place] # (Auto) 0.0 L Eos # (Auto) 0.1 Baso # (Auto) 0.0 Abs Immat Gran (auto) 0.02 Absolute Neuts (auto) 2.6 Absolute Nucleated RBC 0.000 Nucleated RBC % (auto) 0.0 Sodium 130 L Potassium 4.6 Chloride 94 L Carbon Dioxide 29 Anion Gap 12 BUN 20 H Creatinine 1.18 Estim Creat Clear Calc 42.9 Estimated GFR 45 POC Glucose 121 H Random Glucose 93 Calcium 8.6 04/24/20 04/24/20 07:43 11:15 WBC RBC Hgb Hct MCV MCH MCHC RDW Plt Count MPV Immature Gran % (Auto) Neut % (Auto) Lymph % (Auto) [place] % (Auto) Eos % (Auto) Baso % (Auto) Lymph # (Auto) [place] # (Auto) Eos # (Auto) Baso # (Auto) Abs Immat Gran (auto) Absolute Neuts (auto) Absolute Nucleated RBC Nucleated RBC % (auto) Sodium Potassium Chloride Carbon Dioxide Anion Gap BUN Creatinine Estim Creat Clear Calc Estimated GFR POC Glucose 100 94 Random Glucose Calcium Progress Note: A&P Assessment and plan (1) Small cell lung cancer: Status: Acute (2) Atrial fibrillation with rapid ventricular response: Status: Acute (3) History of CHF (congestive heart failure): Status: Acute Assessment and Plan: pleasant 74-year-old female with small cell lung cancer who is on chemotherapy. She presented to hospital for tachycardia and atrial fibrillation rapid ventricular response. She has been in and out of atrial fibrillation. Overnight she had atrial fibrillation and required Cardizem drip. She has some symptoms and was experiencing some palpitations overnight. She is short of breath but has COPD as well as lung cancer involving the left lung and she feels that she is at baseline right now. I think the put her on 20 mg p.o. Lasix. I think we continue the Cardizem and give her metoprolol 25 mg twice a day. My plan was to discuss amiodarone with her but she told me that she has autoimmune hepatitis and liver scarring. I would avoid using amiodarone right now unless we have no other options left. I will check TSH and liver function profile to see how bad the liver function is at baseline. We will arrange a cardiac event monitor for as outpatient Thank you for allowing me to participate in the care of your patient. Please feel free to contact me if you have any questions. Fall Risk Details Current Medications: Current Medications Generic Name Dose Route Start Last Admin Trade Name Freq PRN Reason Stop Dose Admin Acetaminophen 650 mg 11/26/20 06:08 Acetaminophen 325 Mg Tablet PO Q6H PRN Pain, Mild (Pain Scale 1-3) Hydrocodone Bitart/Acetaminophen 1 tab 04/23/20 04:03 Hydrocodone Bit/Acetam 7.5/325 Tablet PO Q6H PRN Pain, Moderate (Pain Scale 4-6 Diltiazem HCl 240 mg 04/23/20 09:45 04/24/20 08:37 Diltiazem Hcl Cd 240 Mg Cap.Er.Deg PO 240 mg DAILY OMAYRA Administration Protocol Docusate Sodium 100 mg 04/23/20 06:08 Docusate Sodium 100 Mg Capsule PO DAILY PRN Constipation Duloxetine HCl 30 mg 04/23/20 09:00 04/24/20 08:36 Duloxetine Hcl 30 Mg Capsule. PO 30 mg DAILY OMAYRA Administration Fentanyl 12 mcg 04/23/20 09:00 04/23/20 08:28 Fentanyl 12 Mcg Patch.[id number] TRANSDERMA Not Given Q3D [facility] Furosemide 20 mg 04/24/20 10:55 Furosemide 20 Mg Tablet PO DAILY [facility] Protocol Insulin Human Lispro 0 unit 04/23/20 07:30 04/24/20 08:36 Insulin Lispro 100 Unit/Ml 3 Ml Vial SUBCUT Not Given QIDACHS [facility] Protocol Lorazepam 0.5 mg 04/23/20 04:03 Lorazepam 0.5 Mg Tablet PO TID PRN Sleep Lorazepam 1 mg 04/23/20 04:03 04/23/20 20:11 Lorazepam 1 Mg Tablet PO 1 mg BEDTIME PRN Administration Anxiety Magnesium Hydroxide 30 ml 04/23/20 06:08 Milk Of Magnesia 30 Ml Oral.Susp PO DAILY PRN Constipation Metoprolol Tartrate 25 mg 04/24/20 09:00 04/24/20 08:37 Metoprolol Tartrate 12.5 Mg Halftab PO 25 mg BID [facility] Administration Protocol Morphine Sulfate 30 mg 04/23/20 09:00 04/24/20 08:37 Morphine Sulfate Er 30 Mg Tablet.Er PO 30 mg Q12H OMAYRA Administration Omeprazole 20 mg 04/23/20 09:00 04/24/20 08:36 Omeprazole 20 Mg Capsule. PO 20 mg BID OMAYRA Administration Ondansetron HCl 4 mg 04/23/20 06:08 Ondansetron Hcl 4 Mg/2 Ml Vial IVPUSH Q8H PRN Nausea and Vomiting Rivaroxaban 15 mg 04/23/20 09:00 04/24/20 08:37 Rivaroxaban 15 Mg Tablet PO 15 mg DAILY OMAYRA Administration Sodium Chloride 3 ml 04/23/20 08:00 04/24/20 08:36 0.9 % Sodium Chloride Flush 3 Ml Syringe IVFLUSH 3 ml QSHIFT OMAYRA Administration Tiotropium [place] 1 puff 04/23/20 09:00 04/24/20 07:37 Tiotropium [place] 18 Mcg Cap.W.Dev INHALE 1 puff DAILY OMAYRA Administration Trazodone HCl 50 mg 04/23/20 21:00 04/23/20 20:07 Trazodone Hcl 50 Mg Tablet PO Not Given BEDTIME OMAYRA Zolpidem Tartrate 10 mg 04/23/20 23:00 04/23/20 23:18 Zolpidem Tartrate 5 Mg Tablet PO 10 mg BEDTIME OMAYRA Administration Time Spent With Patient Time: Total time spent is greater than 50% in coordination of care (as documen jasmina) at patient's floor/unit and/or counseling patient: Time with patient: less than 15 minutes
[2020-04-24] MEDS: Furosemide 20 MG TABLET PO (11:59)
[2020-04-24 12:00] LABS: Alanine Aminotransferase 25 U/L (0-31); Albumin Level 3.8 g/dL (3.5-5.0); Alkaline Phosphatase 54 U/L (39-117); Aspartate Amino Transferase 21 U/L (5-31); Bilirubin Direct < 0.2 mg/dL (0.0-0.5); Bilirubin Total 0.3 mg/dL (0.0-1.0); Total Protein 6.1 g/dL (6.5-8.0)
[2020-04-24 12:20] LABS: Thyroid Stimulating Hormone 2.55 uIU/mL (0.32-4.0)
--- NOTE | 2020-04-24 12:35 | MHC.CM.PN ---
Patient is here with Afib with RVR and appears to have needed to be restarted on the Cardizem Drip today. Goal is likely dc to home tomorrow, no services. CM will continue to follow for dc planning and possible need to adjust the dc plan.
--- NOTE | 2020-04-24 13:43 | P.PNIM_ITS ---
Subjective Subjective Date of Service: 04/24/20 Interval History: the patient was seen and evaluated this morning Laying in bed, feels comfortable Denies any fever, chills or shortness of breath converted area this morning to sinus rhythm but in the afternoon she is back to AFib with RVR No reported other overnight events. Systemic review: No fever, chills But reports weakness when she is in AFib with RVR No chest pain, palpitation No shortness of breath or coughing No abdominal pain, nausea or vomiting No urinary symptoms No any rash or wounds Physical Exam Vital Signs: Vital Signs: Last Vital Signs Temp 97.0 F 04/24/20 11:13 Pulse 70 04/24/20 11:13 Resp 18 04/24/20 11:13 BP 111/70 04/24/20 11:13 Pulse Ox 97 04/24/20 11:13 Body Mass Index 32.8 Constitutional : Alert, oriented, not in distress Neck : Normal inspection, Supple Cardiovascular : RRR at time of exam, S1 S2, no lower extremity edema Respiratory : Good bilateral air entry, no crackles, wheezes or rhonchi Gastrointestinal: soft, lax, Normal bowel sounds, Non tender Skin : Warm/Dry, No rash Neurological : Alert & oriented x3, No focal deficit Objective Data Current Medications Generic Name Dose Route Start Last Admin Trade Name Freq PRN Reason Stop Dose Admin Acetaminophen 650 mg 04/23/20 06:08 Acetaminophen 325 Mg Tablet PO Q6H PRN Pain, Mild (Pain Scale 1-3) Hydrocodone Bitart/Acetaminophen 1 tab 04/23/20 04:03 Hydrocodone Bit/Acetam 7.5/325 Tablet PO Q6H PRN Pain, Moderate (Pain Scale 4-6 Diltiazem HCl 240 mg 04/23/20 09:45 04/24/20 08:37 Diltiazem Hcl Cd 240 Mg Cap.Er.Deg PO 240 mg DAILY OMAYRA Administration Protocol Docusate Sodium 100 mg 04/23/20 06:08 Docusate Sodium 100 Mg Capsule PO DAILY PRN Constipation Duloxetine HCl 30 mg 04/23/20 09:00 04/24/20 08:36 Duloxetine Hcl 30 Mg Capsule.Dr PO 30 mg DAILY OMAYRA Administration Fentanyl 12 mcg 04/23/20 09:00 04/23/20 08:28 Fentanyl 12 Mcg Patch.Td72 TRANSDERMA Not Given Q3D OMAYRA Furosemide 20 mg 04/24/20 10:55 04/24/20 11:59 Furosemide 20 Mg Tablet PO 20 mg DAILY OMAYRA Administration Protocol Insulin Human Lispro 0 unit 04/23/20 07:30 04/24/20 12:00 Insulin Lispro 100 Unit/Ml 3 Ml Vial SUBCUT Not Given QIDACHS [facility] Protocol Lorazepam 0.5 mg 04/23/20 04:03 Lorazepam 0.5 Mg Tablet PO TID PRN Sleep Lorazepam 1 mg 04/23/20 04:03 04/23/20 20:11 Lorazepam 1 Mg Tablet PO 1 mg BEDTIME PRN Administration Anxiety Magnesium Hydroxide 30 ml 04/23/20 06:08 Milk Of Magnesia 30 Ml Oral.Susp PO DAILY PRN Constipation Metoprolol Tartrate 50 mg 04/24/20 21:00 Metoprolol Tartrate 12.5 Mg Halftab PO BID [facility] Protocol Morphine Sulfate 30 mg 04/23/20 09:00 04/24/20 08:37 Morphine Sulfate Er 30 Mg Tablet.Er PO 30 mg Q12H OMAYRA Administration Omeprazole 20 mg 04/23/20 09:00 04/24/20 08:36 Omeprazole 20 Mg Capsule.Dr PO 20 mg BID OMAYRA Administration Ondansetron HCl 4 mg 04/23/20 06:08 Ondansetron Hcl 4 Mg/2 Ml Vial IVPUSH Q8H PRN Nausea and Vomiting Rivaroxaban 15 mg 04/23/20 09:00 04/24/20 08:37 Rivaroxaban 15 Mg Tablet PO 15 mg DAILY OMAYRA Administration Sodium Chloride 3 ml 04/23/20 08:00 04/24/20 08:36 0.9 % Sodium Chloride Flush 3 Ml Syringe IVFLUSH 3 ml QSHIFT OMAYRA Administration Tiotropium [place] 1 puff 04/23/20 09:00 04/24/20 07:37 Tiotropium [place] 18 Mcg Cap.W.Dev INHALE 1 puff DAILY OMAYRA Administration Trazodone HCl 50 mg 04/23/20 21:00 04/23/20 20:07 Trazodone Hcl 50 Mg Tablet PO Not Given BEDTIME OMAYRA Zolpidem Tartrate 10 mg 04/23/20 23:00 04/23/20 23:18 Zolpidem Tartrate 5 Mg Tablet PO 10 mg BEDTIME OMAYRA Administration Labs CBC & Chem 7: 04/24/20 04:52 04/24/20 04:46 Assessment and Plan (1) Atrial fibrillation with rapid ventricular response: Status: Acute (2) History of CHF (congestive heart failure): Status: Acute (3) Hypertension: Status: Acute (4) DVT (deep venous thrombosis): Status: Acute (5) Fibromyalgia: Status: Acute (6) Diabetes mellitus type 2 in obese: Status: Acute (7) Small cell lung cancer: Status: Acute Assessment and Plan: 74 year old female with past medical history as above who presents to the hospital with palpitations found to have AFib with RVR. AFib with RVR Converted to sinus and back to AFib twice over the last 48 hours Cardizem drip held this morning continue with Cardizem 240 daily Increase metoprolol to 50 mg b.i.d., to add an extra dose of 25 for now reported echo within normal Continue Xarelto Cardiology consult appreciated, consider amiodarone if unable to control it or blood pressure running too low congestive heart failure mildly elevated BNP Continue Lasix, to discharge on p.o. Lasix mild Hyponatremia Sodium of 130, stable Likely result of medications continue to monitor bilateral infiltrates CT scan showing old scary, no active disease Identified anemia Baseline around 9 Continue to monitor hypertension stable discontinue hydrochlorothiazide on Cardizem and metoprolol diabetes type 2 Hold metformin Low-dose sliding scale insulin diabetic diet Small cell lung cancer continue pain control continue current treatment outpatient Fibromyalgia continue duloxetine anxiety continue lorazepam DVT prophylaxis Xarelto
[2020-04-24] MEDS: Metoprolol Tartrate 25 MG TABLET PO (13:49)
[2020-04-24 16:13] LABS: Glucose, Whole Blood 106 mg/dL (60-115)
[2020-04-24 20:38] LABS: Glucose, Whole Blood 108 mg/dL (60-115)
[2020-04-24] MEDS: Zolpidem Tartrate 5 MG TABLET 10 MG PO (21:11)
[2020-04-24] MEDS: Metoprolol Tartrate 12.5 MG HALFTAB 50 MG PO (21:11)
[2020-04-24] MEDS: traZODone HCL 50 MG TABLET PO (21:11)
[2020-04-25] VITALS (12 sets, daily range): BP systolic 91–124; BP diastolic 50–68; PULSE 52–89; RESP 16–19; TEMP 36.2–36.9; O2SAT 94–98; BMI 32.3
[2020-04-25 07:34] LABS: Hemoglobin 10.3 g/dl (12.0-16.0); Mean Corpuscular HGB Conc 33.2 g/dl (31.0-35.0); Mean Corpuscular Hemoglobin 33.2 pg (27.0-33.0)
[2020-04-25 07:35] LABS: PLT CLUMP 1
[2020-04-25 07:36] LABS: Mean Platelet Volume 10.3 fL (9.4-12.3); Red Cell Distribution Width 12.9 % (11.0-16.0); White Blood Count 3.1 X10*3/uL (4.8-10.8)
[2020-04-25 07:45] LABS: Platelet Count 91 X10*3/uL (160-400)
[2020-04-25 07:52] LABS: Anion Gap 14 (12-20); Blood Urea Nitrogen 22 mg/dL (9-16); Calcium 8.7 mg/dL (8.4-10.2); Carbon Dioxide 28 mmol/L (22-29); Chloride 95 mmol/L (96-108); Creatinine Clr Calc Pharmacy 44.1; Estimated Glomerular Filt Rate 47; Glucose Random 105 mg/dL (60-115); Sodium 133 mmol/L (135-145)
[2020-04-25 08:10] LABS: Glucose, Whole Blood 106 mg/dL (60-115)
[2020-04-25] MEDS: DULoxetine HCl 30 MG CAPSULE.DR PO (09:27)
[2020-04-25] MEDS: Omeprazole 20 MG CAPSULE.DR PO ×2 (09:27→21:07)
[2020-04-25] MEDS: Furosemide 20 MG TABLET PO (09:27)
[2020-04-25] MEDS: Metoprolol Tartrate 12.5 MG HALFTAB 50 MG PO (09:30)
[2020-04-25] MEDS: 0.9 % Sodium Chloride Flush 3 ML SYRINGE IVFLUSH ×3 (09:31→21:07)
[2020-04-25] MEDS: Morphine Sulfate ER 30 MG TABLET.ER PO ×2 (09:31→21:07)
[2020-04-25] MEDS: Rivaroxaban 15 MG TABLET PO (09:31)
[2020-04-25] MEDS: Amiodarone HCL 200 MG TABLET 400 MG PO ×2 (10:57→21:06)
[2020-04-25 11:56] LABS: Glucose, Whole Blood 130 mg/dL (60-115)
--- NOTE | 2020-04-25 12:08 | P.PNCA_ITS ---
Subjective Subjective Date of Service: 04/25/20 Interval history: Feeling good. She has been in and out of atrial fibrillation and atrial flutter. Review of Systems Review of Systems No palpitations Yes all other systems are reviewed and are negative Physical Exam Vital Signs: Last Vital Signs Temp 98.4 F 04/25/20 11:30 Pulse 61 04/25/20 11:30 Resp 18 04/25/20 11:30 BP 110/68 04/25/20 11:30 Pulse Ox 96 04/25/20 11:30 Body Mass Index 32.3 GENERAL APPEARANCE: in no acute distress. HEENT: unremarkable. HEAD: normocephalic, atraumatic. NECK/THYROID: no carotid bruit SKIN: no suspicious lesions, warm and dry. HEART: no murmurs, regular rate and rhythm, S1, S2 normal. LUNGS: few crackles at bases. ABDOMEN: normal, bowel sounds present, soft, nontender, nondistended. EXTREMITIES: no clubbing, cyanosis, or edema. PERIPHERAL PULSES: equal. NEUROLOGIC: nonfocal, alert and oriented. PSYCH: mood/affect full range. Results Labs and Meds Result diagrams: 04/25/20 06:19 04/25/20 06:19 Lab results: Laboratory Results - last 24 hr 04/24/20 04/24/20 04/24/20 04:46 16:09 20:30 WBC RBC Hgb Hct MCV MCH MCHC RDW Plt Count MPV Absolute Nucleated RBC Nucleated RBC % (auto) Sodium Potassium Chloride Carbon Dioxide Anion Gap BUN Creatinine Estim Creat Clear Calc Estimated GFR POC Glucose 106 108 Random Glucose Calcium TSH 2.55 04/25/20 04/25/20 04/25/20 06:19 06:19 07:39 WBC 3.1 L RBC 3.10 L Hgb 10.3 L Hct 31.0 L MCV 100.0 H MCH 33.2 H MCHC 33.2 RDW 12.9 Plt Count 91 L MPV 10.3 Absolute Nucleated RBC 0.000 Nucleated RBC % (auto) 0.0 Sodium 133 L Potassium 4.0 Chloride 95 L Carbon Dioxide 28 Anion Gap 14 BUN 22 H Creatinine 1.13 Estim Creat Clear Calc 44.1 Estimated GFR 47 POC Glucose 106 Random Glucose 105 Calcium 8.7 TSH 04/25/20 11:32 WBC RBC Hgb Hct MCV MCH MCHC RDW Plt Count MPV Absolute Nucleated RBC Nucleated RBC % (auto) Sodium Potassium Chloride Carbon Dioxide Anion Gap BUN Creatinine Estim Creat Clear Calc Estimated GFR POC Glucose 130 H Random Glucose Calcium TSH Progress Note: A&P Assessment and plan (1) Small cell lung cancer: Status: Acute (2) History of CHF (congestive heart failure): Status: Acute (3) Atrial fibrillation with rapid ventricular response: Status: Acute Assessment and Plan: pleasant 74-year-old female with small cell lung cancer who is on chemotherapy. She presented to hospital for tachycardia and atrial fibrillation rapid ventricular response. She has been in and out of atrial fibrillation. 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 Her LFTs are normal. She has been in and out of atrial fibrillation and also atrial flutter. She has been on Cardizem and metoprolol. I think we need to do rhythm control strategy in her because she feels palpitations and also has developed congestive heart failure due to atrial arrhythmia. Please stop the Cardizem and start her on a miodarone 400 mg twice a day which should be continued for the next 2 weeks. After that she can be on 200 mg once a day maintenance dose of amiodarone. She can be continued on metoprolol 50 mg twice a day. She will need repeat TSH and liver function testing in 3-4 months. Thank you for allowing me to participate in the care of your patient. Please feel free to contact me if you have any questions. Fall Risk Details Current Medications: Current Medications Generic Name Dose Route Start Last Admin Trade Name Freq PRN Reason Stop Dose Admin Acetaminophen 650 mg 04/23/20 06:08 Acetaminophen 325 Mg Tablet PO Q6H PRN Pain, Mild (Pain Scale 1-3) Hydrocodone Bitart/Acetaminophen 1 tab 04/23/20 04:03 Hydrocodone Bit/Acetam 7.5/325 Tablet PO Q6H PRN Pain, Moderate (Pain Scale 4-6 Amiodarone HCl 400 mg 04/25/20 10:25 04/25/20 10:57 Amiodarone Hcl 200 Mg Tablet PO 400 mg BID OMAYRA Administration Docusate Sodium 100 mg 04/23/20 06:08 Docusate Sodium 100 Mg Capsule PO DAILY PRN Constipation Duloxetine HCl 30 mg 04/23/20 09:00 04/25/20 09:27 Duloxetine Hcl 30 Mg Capsule. PO 30 mg DAILY OMAYRA Administration Fentanyl 12 mcg 04/23/20 09:00 04/23/20 08:28 Fentanyl 12 Mcg Patch.Td72 TRANSDERMA Not Given Q3D [facility] Furosemide 20 mg 04/24/20 10:55 04/25/20 09:27 Furosemide 20 Mg Tablet PO 20 mg DAILY OMAYRA Administration Protocol Insulin Human Lispro 0 unit 04/23/20 07:30 04/25/20 09:31 Insulin Lispro 100 Unit/Ml 3 Ml Vial SUBCUT Not Given QIDACHS [facility] Protocol Lorazepam 0.5 mg 04/23/20 04:03 Lorazepam 0.5 Mg Tablet PO TID PRN Sleep Lorazepam 1 mg 04/23/20 04:03 04/23/20 20:11 Lorazepam 1 Mg Tablet PO 1 mg BEDTIME PRN Administration Anxiety Magnesium Hydroxide 30 ml 04/23/20 06:08 Milk Of Magnesia 30 Ml Oral.Susp PO DAILY PRN Constipation Metoprolol Tartrate 50 mg 04/24/20 21:00 04/25/20 09:30 Metoprolol Tartrate 12.5 Mg Halftab PO 50 mg BID OMAYRA Administration Protocol Morphine Sulfate 30 mg 04/23/20 09:00 04/25/20 09:31 Morphine Sulfate Er 30 Mg Tablet.Er PO 30 mg Q12H OMAYRA Administration Omeprazole 20 mg 04/23/20 09:00 04/25/20 09:27 Omeprazole 20 Mg Capsule.Dr PO 20 mg BID OMAYRA Administration Ondansetron HCl 4 mg 04/23/20 06:08 Ondansetron Hcl 4 Mg/2 Ml Vial IVPUSH Q8H PRN Nausea and Vomiting Rivaroxaban 15 mg 04/23/20 09:00 04/25/20 09:31 Rivaroxaban 15 Mg Tablet PO 15 mg DAILY OMAYRA Administration Sodium Chloride 3 ml 04/23/20 08:00 04/25/20 09:31 0.9 % Sodium Chloride Flush 3 Ml Syringe IVFLUSH 3 ml QSHIFT OMAYRA Administration Tiotropium [place] 1 puff 04/25/20 09:00 04/25/20 08:40 Tiotropium [place] 18 Mcg Cap.W.Dev INHALE 1 puff DAILY OMAYRA Administration Trazodone HCl 50 mg 04/23/20 21:00 04/24/20 21:11 Trazodone Hcl 50 Mg Tablet PO 50 mg BEDTIME OMAYRA Administration Zolpidem Tartrate 10 mg 04/23/20 23:00 04/24/20 21:11 Zolpidem Tartrate 5 Mg Tablet PO 10 mg BEDTIME OMAYRA Administration Time Spent With Patient Time: Total time spent is greater than 50% in coordination of care (as documented) at patient's floor/unit and/or counseling patient: Time with patient: less than 15 minutes
--- NOTE | 2020-04-25 13:13 | HO.PM.IMPN ---
Subjective Subjective Date of Service: 04/25/20 Interval History: the patient was seen and evaluated this morning Laying in bed, feels comfortable but reported feeling weak overall Denies any fever, chills or shortness of breath back to AFib with RVR overnight No reported other overnight events. Systemic review: No fever, chills But reports weakness when she is in AFib with RVR No chest pain, palpitation No shortness of breath or coughing No abdominal pain, nausea or vomiting No urinary symptoms No any rash or wounds Physical Exam Vital Signs: Vital Signs: Last Vital Signs Temp 98.4 F 04/25/20 11:30 Pulse 61 04/25/20 11:30 Resp 18 04/25/20 11:30 BP 110/68 04/25/20 11:30 Pulse Ox 96 04/25/20 11:30 Body Mass Index 32.3 Constitutional : Alert, oriented, not in distress Neck : Normal inspection, Supple Cardiovascular : irregular heart rhythm, S1 S2, no lower extremity edema Respiratory : Good bilateral air entry, no crackles, wheezes or rhonchi Gastrointestinal: soft, lax, Normal bowel sounds, Non tender Skin : Warm/Dry, No rash Neurological : Alert & oriented x3, No focal deficit Objective Data Current Medications Generic Name Dose Route Start Last Admin Trade Name Freq PRN Reason Stop Dose Admin Acetaminophen 650 mg 04/23/20 06:08 Acetaminophen 325 Mg Tablet PO Q6H PRN Pain, Mild (Pain Scale 1-3) Hydrocodone Bitart/Acetaminophen 1 tab 04/23/20 04:03 Hydrocodone Bit/Acetam 7.5/325 Tablet PO Q6H PRN Pain, Moderate (Pain Scale 4-6 Amiodarone HCl 400 mg 04/25/20 10:25 04/25/20 10:57 Amiodarone Hcl 200 Mg Tablet PO 400 mg BID OMAYRA Administration Docusate Sodium 100 mg 04/23/20 06:08 Docusate Sodium 100 Mg Capsule PO DAILY PRN Constipation Duloxetine HCl 30 mg 04/23/20 09:00 04/25/20 09:27 Duloxetine Hcl 30 Mg Capsule.Dr PO 30 mg DAILY OMAYRA Administration Fentanyl 12 mcg 04/23/20 09:00 04/23/20 08:28 Fentanyl 12 Mcg Patch.Td72 TRANSDERMA Not Given Q3D OMAYRA Furosemide 20 mg 04/24/20 10:55 04/25/20 09:27 Furosemide 20 Mg Tablet PO 20 mg DAILY OMAYRA Administration Protocol Insulin Human Lispro 0 unit 04/23/20 07:30 04/25/20 13:08 Insulin Lispro 100 Unit/Ml 3 Ml Vial SUBCUT Not Given QIDACHS [facility] Protocol Lorazepam 0.5 mg 04/23/20 04:03 Lorazepam 0.5 Mg Tablet PO TID PRN Sleep Lorazepam 1 mg 04/23/20 04:03 04/23/20 20:11 Lorazepam 1 Mg Tablet PO 1 mg BEDTIME PRN Administration Anxiety Magnesium Hydroxide 30 ml 04/23/20 06:08 Milk Of Magnesia 30 Ml Oral.Susp PO DAILY PRN Constipation Metoprolol Tartrate 50 mg 04/24/20 21:00 04/25/20 09:30 Metoprolol Tartrate 12.5 Mg Halftab PO 50 mg BID OMAYRA Administration Protocol Morphine Sulfate 30 mg 04/23/20 09:00 04/25/20 09:31 Morphine Sulfate Er 30 Mg Tablet.Er PO 30 mg Q12H OMAYRA Administration Omeprazole 20 mg 04/23/20 09:00 04/25/20 09:27 Omeprazole 20 Mg Capsule.Dr PO 20 mg BID OMAYRA Administration Ondansetron HCl 4 mg 04/23/20 06:08 Ondansetron Hcl 4 Mg/2 Ml Vial IVPUSH Q8H PRN Nausea and Vomiting Rivaroxaban 15 mg 04/23/20 09:00 04/25/20 09:31 Rivaroxaban 15 Mg Tablet PO 15 mg DAILY OMAYRA Administration Sodium Chloride 3 ml 04/23/20 08:00 04/25/20 09:31 0.9 % Sodium Chloride Flush 3 Ml Syringe IVFLUSH 3 ml QSHIFT OMAYRA Administration Tiotropium [place] 1 puff 04/25/20 09:00 04/25/20 08:40 Tiotropium [place] 18 Mcg Cap.W.Dev INHALE 1 puff DAILY OMAYRA Administration Trazodone HCl 50 mg 04/23/20 21:00 04/24/20 21:11 Trazodone Hcl 50 Mg Tablet PO 50 mg BEDTIME OMAYRA Administration Zolpidem Tartrate 10 mg 04/23/20 23:00 04/24/20 21:11 Zolpidem Tartrate 5 Mg Tablet PO 10 mg BEDTIME OMAYRA Administration Labs CBC & Chem 7: 04/25/20 06:19 04/25/20 06:19 Assessment and Plan (1) Atrial fibrillation with rapid ventricular response: Status: Acute (2) History of CHF (congestive heart failure): Status: Acute (3) Hypertension: Status: Acute (4) DVT (deep venous thrombosis): Status: Acute (5) Fibromyalgia: Status: Acute (6) Diabetes mellitus type 2 in obese: Status: Acute (7) Small cell lung cancer: Status: Acute Assessment and Plan: 74 year old female with past medical history as above who presents to the hospital with palpitations found to have AFib with RVR. AFib with RVR Converted to sinus and back to AFib twice over the last 48 hours discontinue Cardizem 240 daily continue metoprolol to 50 mg b.i.d Start amiodarone 400 mg b.i.d. for 2 weeks then 200 mg daily reported echo within normal Continue Xarelto Cardiology consult appreciated,. Cardizem and start amiodarone congestive heart failure mildly elevated BNP Continue Lasix, to discharge on p.o. Lasix mild Hyponatremia Sodium of 130, stable Likely result of medications continue to monitor bilateral infiltrates CT scan showing old scary, no active disease Identified anemia Baseline around 9 Continue to monitor hypertension stable discontinue hydrochlorothiazide on Cardizem and metoprolol diabetes type 2 Hold metformin Low-dose sliding scale insulin diabetic diet Small cell lung cancer continue pain control continue current treatment outpatient Fibromyalgia continue duloxetine anxiety continue lorazepam DVT prophylaxis Xarelto
[2020-04-25 16:37] LABS: Glucose, Whole Blood 111 mg/dL (60-115)
[2020-04-25 20:38] LABS: Glucose, Whole Blood 109 mg/dL (60-115)
[2020-04-25] MEDS: Zolpidem Tartrate 5 MG TABLET 10 MG PO (21:06)
[2020-04-25] MEDS: traZODone HCL 50 MG TABLET PO (21:07)
[2020-04-26] VITALS (14 sets, daily range): BP systolic 74–127; BP diastolic 50–62; PULSE 57–138; RESP 16–20; TEMP 36.6–37.3; O2SAT 91–96; BMI 31.1
[2020-04-26 07:57] LABS: Glucose, Whole Blood 100 mg/dL (60-115)
[2020-04-26] MEDS: Amiodarone HCL 200 MG TABLET 400 MG PO ×2 (09:03→20:40)
[2020-04-26] MEDS: 0.9 % Sodium Chloride Flush 3 ML SYRINGE IVFLUSH ×2 (09:03→17:17)
[2020-04-26] MEDS: DULoxetine HCl 30 MG CAPSULE.DR PO (09:03)
[2020-04-26] MEDS: Omeprazole 20 MG CAPSULE.DR PO ×2 (09:03→20:44)
[2020-04-26] MEDS: Rivaroxaban 15 MG TABLET PO (09:04)
[2020-04-26] MEDS: Furosemide 20 MG TABLET PO (09:04)
[2020-04-26] MEDS: Morphine Sulfate ER 30 MG TABLET.ER PO ×2 (09:04→20:40)
[2020-04-26] MEDS: Metoprolol Tartrate 12.5 MG HALFTAB 25 MG PO ×2 (10:20→20:40)
--- NOTE | 2020-04-26 11:17 | PM.PNCARD ---
Subjective Subjective Date of Service: 04/26/20 Interval history: She continues going in and out of atrial fibrillation. She is getting dizzy when she ambulates and is developing chest discomfort and AFib with RVR with ambulation. Review of Systems Review of Systems Dyspnea, chest discomfort, Palpitations. Yes all other systems are reviewed and are negative Physical Exam Vital Signs: Last Vital Signs Temp 98.8 F 04/26/20 08:00 Pulse 72 04/26/20 10:20 Resp 20 04/26/20 08:00 BP 100/54 L 04/26/20 10:20 Pulse Ox 93 04/26/20 08:00 Body Mass Index 31.1 GENERAL APPEARANCE: in no acute distress. HEENT: unremarkable. HEAD: normocephalic, atraumatic. NECK/THYROID: no carotid bruit SKIN: no suspicious lesions, warm and dry. HEART: no murmurs, regular rate and rhythm, S1, S2 normal. LUNGS: few crackles at bases. ABDOMEN: normal, bowel sounds present, soft, nontender, nondistended. EXTREMITIES: no clubbing, cyanosis, or edema. PERIPHERAL PULSES: equal. NEUROLOGIC: nonfocal, alert and oriented. PSYCH: mood/affect full range. Results Labs and Meds Result diagrams: 04/25/20 06:19 04/25/20 06:19 Lab results: Laboratory Results - last 24 hr 04/25/20 04/25/20 04/25/20 11:32 16:23 20:25 POC Glucose 130 H 111 109 04/26/20 07:44 POC Glucose 100 Progress Note: A&P Assessment and plan (1) Atrial fibrillation with rapid ventricular response: Status: Acute (2) Small cell lung cancer: Status: Acute (3) History of CHF (congestive heart failure): Status: Acute Assessment and Plan: pleasant 74-year-old female with small cell lung cancer who is on chemotherapy. She presented to hospital for tachycardia and atrial fibrillation rapid ventricular response. She has been in and out of atrial fibrillation and atrial flutter. Continue amiodarone and metoprolol. Check orthostatics and if positive give some IV fluids. Holding Lasix for now. Thank you for allowing me to participate in the care of your patient. Please feel free to contact me if you have any questions. Fall Risk Details Current Medications: Current Medications Generic Name Dose Route Start Last Admin Trade Name Freq PRN Reason Stop Dose Admin Acetaminophen 650 mg 04/23/20 06:08 Acetaminophen 325 Mg Tablet PO Q6H PRN Pain, Mild (Pain Scale 1-3) Hydrocodone Bitart/Acetaminophen 1 tab 04/23/20 04:03 Hydrocodone Bit/Acetam 7.5/325 Tablet PO Q6H PRN Pain, Moderate (Pain Scale 4-6 Amiodarone HCl 400 mg 04/25/20 10:25 04/26/20 09:03 Amiodarone Hcl 200 Mg Tablet PO 400 mg BID OMAYRA Administration Docusate Sodium 100 mg 04/23/20 06:08 Docusate Sodium 100 Mg Capsule PO DAILY PRN Constipation Duloxetine HCl 30 mg 04/23/20 09:00 04/26/20 09:03 Duloxetine Hcl 30 Mg Capsule. PO 30 mg DAILY OMAYRA Administration Fentanyl 12 mcg 04/23/20 09:00 04/26/20 10:13 Fentanyl 12 Mcg Patch.Td72 TRANSDERMA Not Given Q3D [facility] Furosemide 20 mg 04/24/20 10:55 04/26/20 09:04 Furosemide 20 Mg Tablet PO 20 mg DAILY OMAYRA Administration Protocol Insulin Human Lispro 0 unit 04/23/20 07:30 04/26/20 07:56 Insulin Lispro 100 Unit/Ml 3 Ml Vial SUBCUT Not Given QIDACHS [facility] Protocol Lorazepam 0.5 mg 04/23/20 04:03 Lorazepam 0.5 Mg Tablet PO TID PRN Sleep Lorazepam 1 mg 04/23/20 04:03 04/23/20 20:11 Lorazepam 1 Mg Tablet PO 1 mg BEDTIME PRN Administration Anxiety Magnesium Hydroxide 30 ml 04/23/20 06:08 Milk Of Magnesia 30 Ml Oral.Susp PO DAILY PRN Constipation Metoprolol Tartrate 25 mg 04/26/20 21:00 04/26/20 10:20 Metoprolol Tartrate 12.5 Mg Halftab PO 25 mg BID OMAYRA Administration Protocol Morphine Sulfate 30 mg 04/23/20 09:00 04/26/20 09:04 Morphine Sulfate Er 30 Mg Tablet.Er PO 30 mg Q12H OMAYRA Administration Omeprazole 20 mg 04/23/20 09:00 04/26/20 09:03 Omeprazole 20 Mg Capsule. PO 20 mg BID OMAYRA Administration Ondansetron HCl 4 mg 04/23/20 06:08 Ondansetron Hcl 4 Mg/2 Ml Vial IVPUSH Q8H PRN Nausea and Vomiting Rivaroxaban 15 mg 04/23/20 09:00 04/26/20 09:04 Rivaroxaban 15 Mg Tablet PO 15 mg DAILY OMAYRA Administration Sodium Chloride 3 ml 04/23/20 08:00 04/26/20 09:03 0.9 % Sodium Chloride Flush 3 Ml Syringe IVFLUSH 3 ml QSHIFT OMAYRA Administration Tiotropium [place] 1 puff 04/25/20 09:00 04/26/20 08:12 Tiotropium [place] 18 Mcg Cap.W.Dev INHALE 1 puff DAILY OMAYRA Administration Trazodone HCl 50 mg 04/23/20 21:00 04/25/20 21:07 Trazodone Hcl 50 Mg Tablet PO 50 mg BEDTIME OMAYRA Administration Zolpidem Tartrate 10 mg 04/23/20 23:00 04/25/20 21:06 Zolpidem Tartrate 5 Mg Tablet PO 10 mg BEDTIME OMAYRA Administration Time Spent With Patient Time: Total time spent is greater than 50% in coordination of care (as documented) at patient's floor/unit and/or counseling patient: Time with patient: less than 15 minutes
[2020-04-26] MEDS: 0.9 % Sodium Chloride 500 ML IV (11:48)
[2020-04-26 12:30] LABS: Glucose, Whole Blood 117 mg/dL (60-115)
--- NOTE | 2020-04-26 13:01 | HO.PM.IMPN ---
Subjective Subjective Date of Service: 04/26/20 Interval History: the patient was seen and evaluated this morning Laying in bed, feels comfortable but reported feeling weak overall Denies any fever, chills or shortness of breath back to AFib with RVR overnight, she did not receive the night dose of metoprolol for low blood pressure. The No reported other overnight events. Systemic review: No fever, chills But reports weakness when she is in AFib with RVR No chest pain, reports feeling some palpitation No shortness of breath or coughing No abdominal pain, nausea or vomiting No urinary symptoms No any rash or wounds Physical Exam Vital Signs: Vital Signs: Last Vital Signs Temp 97.8 F 04/26/20 11:35 Pulse 80 04/26/20 11:40 Resp 20 04/26/20 11:35 BP 74/53 L 04/26/20 11:38 Pulse Ox 96 04/26/20 11:35 Body Mass Index 31.1 Constitutional : Alert, oriented, not in distress Neck : Normal inspection, Supple Cardiovascular : irregular heart rhythm, S1 S2, no lower extremity edema Respiratory : Good bilateral air entry, no crackles, wheezes or rhonchi Gastrointestinal: soft, lax, Normal bowel sounds, Non tender Skin : Warm/Dry, No rash Neurological : Alert & oriented x3, No focal deficit Objective Data Current Medications Generic Name Dose Route Start Last Admin Trade Name Freq PRN Reason Stop Dose Admin Acetaminophen 650 mg 04/23/20 06:08 Acetaminophen 325 Mg Tablet PO Q6H PRN Pain, Mild (Pain Scale 1-3) Hydrocodone Bitart/Acetaminophen 1 tab 04/23/20 04:03 Hydrocodone Bit/Acetam 7.5/325 Tablet PO Q6H PRN Pain, Moderate (Pain Scale 4-6 Amiodarone HCl 400 mg 04/25/20 10:25 04/26/20 09:03 Amiodarone Hcl 200 Mg Tablet PO 400 mg BID OMAYRA Administration Docusate Sodium 100 mg 04/23/20 06:08 Docusate Sodium 100 Mg Capsule PO DAILY PRN Constipation Duloxetine HCl 30 mg 04/23/20 09:00 04/26/20 09:03 Duloxetine Hcl 30 Mg Capsule.Dr PO 30 mg DAILY OMAYRA Administration Fentanyl 12 mcg 04/23/20 09:00 04/26/20 10:13 Fentanyl 12 Mcg Patch.Td72 TRANSDERMA Not Given Q3D [facility] Insulin Human Lispro 0 unit 04/23/20 07:30 04/26/20 12:29 Insulin Lispro 100 Unit/Ml 3 Ml Vial SUBCUT Not Given QIDACHS [facility] Protocol Lorazepam 0.5 mg 04/23/20 04:03 Lorazepam 0.5 Mg Tablet PO TID PRN Sleep Lorazepam 1 mg 04/23/20 04:03 04/23/20 20:11 Lorazepam 1 Mg Tablet PO 1 mg BEDTIME PRN Administration Anxiety Magnesium Hydroxide 30 ml 04/23/20 06:08 Milk Of Magnesia 30 Ml Oral.Susp PO DAILY PRN Constipation Metoprolol Tartrate 25 mg 04/26/20 21:00 04/26/20 10:20 Metoprolol Tartrate 12.5 Mg Halftab PO 25 mg BID [facility] Administration Protocol Morphine Sulfate 30 mg 04/23/20 09:00 04/26/20 09:04 Morphine Sulfate Er 30 Mg Tablet.Er PO 30 mg Q12H OMAYRA Administration Omeprazole 20 mg 04/23/20 09:00 04/26/20 09:03 Omeprazole 20 Mg Capsule.Dr PO 20 mg BID OMAYRA Administration Ondansetron HCl 4 mg 04/23/20 06:08 Ondansetron Hcl 4 Mg/2 Ml Vial IVPUSH Q8H PRN Nausea and Vomiting Rivaroxaban 15 mg 04/23/20 09:00 04/26/20 09:04 Rivaroxaban 15 Mg Tablet PO 15 mg DAILY OMAYRA Administration Sodium Chloride 3 ml 04/23/20 08:00 04/26/20 09:03 0.9 % Sodium Chloride Flush 3 Ml Syringe IVFLUSH 3 ml QSHIFT [facility] Administration Tiotropium [place] 1 puff 04/25/20 09:00 04/26/20 08:12 Tiotropium [place] 18 Mcg Cap.W.Dev INHALE 1 puff DAILY OMAYRA Administration Trazodone HCl 50 mg 04/23/20 21:00 04/25/20 21:07 Trazodone Hcl 50 Mg Tablet PO 50 mg BEDTIME OMAYRA Administration Zolpidem Tartrate 10 mg 04/23/20 23:00 04/25/20 21:06 Zolpidem Tartrate 5 Mg Tablet PO 10 mg BEDTIME OMAYRA Administration Labs CBC & Chem 7: 04/25/20 06:19 11/28/20 06:19 Assessment and Plan (1) Atrial fibrillation with rapid ventricular response: Status: Acute (2) History of CHF (congestive heart failure): Status: Acute (3) Hypertension: Status: Acute (4) DVT (deep venous thrombosis): Status: Acute (5) Fibromyalgia: Status: Acute (6) Diabetes mellitus type 2 in obese: Status: Acute (7) Small cell lung cancer: Status: Acute Assessment and Plan: 74 year old female with past medical history as above who presents to the hospital with palpitations found to have AFib with RVR. AFib with RVR Converted to sinus and back to AFib on multiple occasions during the hospital stay, difficult to control AFib. did not receive metoprolol overnight for low blood pressure discontinue Cardizem 240 daily continue metoprolol to 25 mg b.i.d for now, can increase the dose of blood pressure tolerates continue amiodarone 400 mg b.i.d. for 2 weeks then 200 mg daily reported echo within normal Continue Xarelto Cardiology consult appreciated, hold Lasix for today congestive heart failure mildly elevated BNP hold Lasix for today, Might need to discharge on p.o. Lasix Dizziness Could be secondary to orthostatic hypotension to check orthostatic vitals, to give bolus of fluid if needed mild Hyponatremia Sodium of 133, stable Likely result of medications continue to monitor bilateral infiltrates CT scan showing old scary, no active disease Identified anemia Baseline around 9 Continue to monitor hypertension stable discontinue hydrochlorothiazide on Cardizem and metoprolol diabetes type 2 Hold metformin Low-dose sliding scale insulin diabetic diet Small cell lung cancer continue pain control continue current treatment outpatient Fibromyalgia continue duloxetine anxiety continue lorazepam DVT prophylaxis Xarelto
[2020-04-26 17:04] LABS: Glucose, Whole Blood 106 mg/dL (60-115)
--- NOTE | 2020-04-26 19:15 | PC.NURSE ---
Pt HR back and forth from afib/aflutter to SR. Pt only conplains of some pressure in her chest upon walking and increase HR. Pt bp runs soft, pt reieved 500ml bolus per EMAR. Will continue to monitor
[2020-04-26] MEDS: traZODone HCL 50 MG TABLET PO (20:40)
[2020-04-26] MEDS: ondansetron HCL 4 MG/2 ML VIAL IVPUSH (20:48)
--- NOTE | 2020-04-26 21:06 | PC.NURSE ---
Pt, c/o chest pressure on left side of chest/side. Pt says she sometimes get this at home, her scheduled MS isabelle works to alleviate pain. Gave scheduled MS isabelle per EMAR and told pt to ring call viveros if worsens. Pt stated she was feeling anxious due to not knowing what's going on with heart. Reassured pt that we are working to figure it out and figure out meds that will work for her. Will continue to monitor
[2020-04-26 21:45] LABS: Glucose, Whole Blood 121 mg/dL (60-115)
[2020-04-26] MEDS: Zolpidem Tartrate 5 MG TABLET 10 MG PO (21:46)
[2020-04-27] VITALS (8 sets, daily range): BP systolic 91–128; BP diastolic 52–65; PULSE 58–96; RESP 16–20; TEMP 36.6–37; O2SAT 93–98; BMI 32.7
[2020-04-27] MEDS: 0.9 % Sodium Chloride Flush 3 ML SYRINGE IVFLUSH ×3 (00:47→16:27)
[2020-04-27 06:48] LABS: Mean Corpuscular Volume 100.7 fL (80-98); PLT CLUMP 1
[2020-04-27 06:49] LABS: Hematocrit 28.5 % (37-47); Hemoglobin 9.6 g/dl (12.0-16.0); Mean Corpuscular HGB Conc 33.7 g/dl (31.0-35.0); Mean Corpuscular Hemoglobin 33.9 pg (27.0-33.0); Mean Platelet Volume 10.7 fL (9.4-12.3); Red Blood Count 2.83 X10*6/uL (4.20-5.50); Red Cell Distribution Width 12.6 % (11.0-16.0)
[2020-04-27 06:55] LABS: Anion Gap 14 (12-20); Blood Urea Nitrogen 25 mg/dL (9-16); Calcium 8.4 mg/dL (8.4-10.2); Carbon Dioxide 29 mmol/L (22-29); Chloride 94 mmol/L (96-108); Creatinine Clr Calc Pharmacy 33.4; Estimated Glomerular Filt Rate 34; Glucose Random 108 mg/dL (60-115); Magnesium 1.9 mg/dL (1.6-2.6); Potassium 3.9 mmol/l (3.3-5.1); Sodium 133 mmol/L (135-145)
[2020-04-27 07:04] LABS: Platelet Count 81 X10*3/uL (160-400); White Blood Count 1.7 X10*3/uL (4.8-10.8)
[2020-04-27 07:31] LABS: Glucose, Whole Blood 102 mg/dL (60-115)
[2020-04-27] MEDS: DULoxetine HCl 30 MG CAPSULE.DR PO (08:28)
[2020-04-27] MEDS: Rivaroxaban 15 MG TABLET PO (08:28)
[2020-04-27] MEDS: Omeprazole 20 MG CAPSULE.DR PO ×2 (08:28→20:42)
[2020-04-27] MEDS: Metoprolol Tartrate 12.5 MG HALFTAB 25 MG PO (08:29)
[2020-04-27] MEDS: Amiodarone HCL 200 MG TABLET 400 MG PO ×2 (08:30→20:42)
[2020-04-27] MEDS: Morphine Sulfate ER 30 MG TABLET.ER PO ×2 (09:36→21:43)
--- NOTE | 2020-04-27 11:23 | MHC.CM.PN ---
The goal for dc continues to be home, no services. Patient has difficult to control Afib with RVR and has not yet been medically cleared for dc. CM will continue to follow for dc planning and the possible need to adjust the dc plan.
[2020-04-27 11:30] LABS: Glucose, Whole Blood 107 mg/dL (60-115)
--- NOTE | 2020-04-27 11:46 | P.PNCA_ITS ---
Subjective Subjective Date of Service: 04/27/20 Principal diagnosis: Atrial flutter Interval history: overnight no episodes of atrial flutter noted. This morning in normal sinus rhythm. Continues to have precordial chest pressure and shortness of breath. Review of Systems Constitutional: Reports no additional constitutional complaints Eyes: Reports no additional eye complaints Reports system reviewed and no additional complaints, except as documented Cardiovascular: Reports chest pain, Denies palpitations and Reports dyspnea on exertion Respiratory: Denies cough and Reports dyspnea on exertion Gastrointestinal: Reports no additional gastrointestinal complaints Musculoskeletal: Reports no additional musculoskeletal complaints Reports system reviewed and no additional complaints, except as documented Endocrine: Reports no additional endocrine complaints and Denies palpitations Hematologic/Lymphatic: Reports no additional hematologic/lymphatic complaints Physical Exam Vital Signs: Last Vital Signs Temp 98.6 F 04/27/20 08:00 Pulse 65 04/27/20 08:29 Resp 20 04/27/20 08:00 BP 104/65 04/27/20 08:29 Pulse Ox 94 04/27/20 08:00 Body Mass Index 32.7 Const General: cooperative, comfortable, no acute distress, alert and awake Orientation/consciousness: patient oriented x3 HENMT Head: Yes normocephalic and Yes atraumatic Eyes General: appearance normal, both eyes and all related structures Neck Neck: Yes trachea midline, Yes supple and Yes no JVD Chest Chest palpation & inspection: normal inspection of the chest Resp Effort & Inspection: normal respiratory effort Auscultation: no rales and diminished lung sounds Cardio Palpation: normal PMI Rate: regular rate Rhythm: regular rhythm Heart sounds: S1 normal heart sound present and S2 normal heart sound present GI Auscultation: normal bowel sounds Skin General skin exam: no rashes or lesions noted Neuro General: patient oriented x3 Extrem General: Yes no clubbing, cyanosis or edema Psych Appearance: grossly normal Affect: Anxious affect present Results Labs and Meds Result diagrams: 04/27/20 06:07 04/27/20 06:07 Lab results: Laboratory Results - last 24 hr 04/26/20 04/26/20 04/26/20 11:35 16:45 21:41 WBC RBC Hgb Hct MCV MCH MCHC RDW Plt Count MPV Absolute Nucleated RBC Nucleated RBC % (auto) Sodium Potassium Chloride Carbon Dioxide Anion Gap BUN Creatinine Estim Creat Clear Calc Estimated GFR POC Glucose 117 H 106 121 H Random Glucose Calcium Magnesium 04/27/20 04/27/20 04/27/20 06:07 06:07 07:24 WBC 1.7 L RBC 2.83 L Hgb 9.6 L Hct 28.5 L MCV 100.7 H MCH 33.9 H MCHC 33.7 RDW 12.6 Plt Count 81 L MPV 10.7 Absolute Nucleated RBC 0.000 Nucleated RBC % (auto) 0.0 Sodium 133 L Potassium 3.9 Chloride 94 L Carbon Dioxide 29 Anion Gap 14 BUN 25 H Creatinine 1.50 H Estim Creat Clear Calc 33.4 Estimated GFR 34 POC Glucose 102 Random Glucose 108 Calcium 8.4 Magnesium 1.9 04/27/20 11:14 WBC RBC Hgb Hct MCV MCH MCHC RDW Plt Count MPV Absolute Nucleated RBC Nucleated RBC % (auto) Sodium Potassium Chloride Carbon Dioxide Anion Gap BUN Creatinine Estim Creat Clear Calc Estimated GFR POC Glucose 107 Random Glucose Calcium Magnesium Progress Note: A&P Assessment and plan (1) Paroxysmal atrial flutter: Status: Acute Assessment and Plan: paroxysmal atrial flutter seems to have responded to amiodarone therapy. Continue the same. Given the proximity of her tumor to the cardiac structure, likely that this is arrhythmias related to the tumor burden. Continue amiodarone therapy suppress the arrhythmia. Continue amiodarone loading 400 mg b.i.d. for total of 2 weeks followed by 200 mg daily. Continue metoprolol therapy. Continue treat supportive care for lung cancer as below. Currently on full oral anticoagulation, renally adjusted dose of Xarelto 15 mg daily. Continue the same. Consider repeating 12 lead EKG. Also request 2D echocardiogram to evaluate for pericardial effusion as well as biatrial chamber size. Will sign of the case. (2) Small cell lung cancer: Status: Acute Assessment and Plan: Treatment as per the hospitalist and Oncology team. Fall Risk Details Current Medications: Current Medications Generic Name Dose Route Start Last Admin Trade Name Freq PRN Reason Stop Dose Admin Acetaminophen 650 mg 04/23/20 06:08 Acetaminophen 325 Mg Tablet PO Q6H PRN Pain, Mild (Pain Scale 1-3) Hydrocodone Bitart/Acetaminophen 1 tab 04/23/20 04:03 Hydrocodone Bit/Acetam 7.5/325 Tablet PO Q6H PRN Pain, Moderate (Pain Scale 4-6 Amiodarone HCl 400 mg 04/25/20 10:25 04/27/20 08:30 Amiodarone Hcl 200 Mg Tablet PO 400 mg BID OMAYRA Administration Docusate Sodium 100 mg 04/23/20 06:08 Docusate Sodium 100 Mg Capsule PO DAILY PRN Constipation Duloxetine HCl 30 mg 04/23/20 09:00 04/27/20 08:28 Duloxetine Hcl 30 Mg Capsule.Dr PO 30 mg DAILY OMAYRA Administration Fentanyl 12 mcg 04/23/20 09:00 04/26/20 10:13 Fentanyl 12 Mcg Patch.Td72 TRANSDERMA Not Given Q3D [facility] Insulin Human Lispro 0 unit 04/23/20 07:30 04/27/20 08:18 Insulin Lispro 100 Unit/Ml 3 Ml Vial SUBCUT Not Given QIDACHS [facility] Protocol Lorazepam 0.5 mg 04/23/20 04:03 Lorazepam 0.5 Mg Tablet PO TID PRN Sleep Lorazepam 1 mg 04/23/20 04:03 04/23/20 20:11 Lorazepam 1 Mg Tablet PO 1 mg BEDTIME PRN Administration Anxiety Magnesium Hydroxide 30 ml 04/23/20 06:08 Milk Of Magnesia 30 Ml Oral.Susp PO DAILY PRN Constipation Metoprolol Tartrate 25 mg 04/26/20 21:00 04/27/20 08:29 Metoprolol Tartrate 12.5 Mg Halftab PO 25 mg BID [facility] Administration Protocol Morphine Sulfate 30 mg 04/23/20 09:00 04/27/20 09:36 Morphine Sulfate Er 30 Mg Tablet.Er PO 30 mg Q12H OMAYRA Administration Omeprazole 20 mg 04/23/20 09:00 04/27/20 08:28 Omeprazole 20 Mg Capsule.Dr PO 20 mg BID OMAYRA Administration Ondansetron HCl 4 mg 04/23/20 06:08 04/26/20 20:48 Ondansetron Hcl 4 Mg/2 Ml Vial IVPUSH 4 mg Q8H PRN Administration Nausea and Vomiting Rivaroxaban 15 mg 04/23/20 09:00 04/27/20 08:28 Rivaroxaban 15 Mg Tablet PO 15 mg DAILY OMAYRA Administration Sodium Chloride 3 ml 04/23/20 08:00 04/27/20 08:30 0.9 % Sodium Chloride Flush 3 Ml Syringe IVFLUSH 3 ml QSHIFT [facility] Administration Tiotropium [place] 1 puff 04/25/20 09:00 04/26/20 08:12 Tiotropium [place] 18 Mcg Cap.W.Dev INHALE 1 puff DAILY OMAYRA Administration Trazodone HCl 50 mg 04/23/20 21:00 04/26/20 20:40 Trazodone Hcl 50 Mg Tablet PO 50 mg BEDTIME OMAYRA Administration Zolpidem Tartrate 10 mg 04/23/20 23:00 04/26/20 21:46 Zolpidem Tartrate 5 Mg Tablet PO 10 mg BEDTIME OMAYRA Administration Time Spent With Patient Time: Total time spent is greater than 50% in coordination of care (as documented) at patient's floor/unit and/or counseling patient: Time with patient: 15 - 24 minutes
--- NOTE | 2020-04-27 14:56 | P.PNIM_ITS ---
Subjective Subjective Date of Service: 04/27/20 Interval History: patient seen and examined at bedside patient reported some chest discomfort last night no shortness of breath or chest pain now Review of Systems Dyspnea, chest discomfort, Palpitations. Constitutional Constitutional: Reports no additional constitutional complaints Eyes Eyes: Reports no additional eye complaints ENT Ears, Nose, Mouth, and Throat: Reports system reviewed and no additional complaints, except as documented Cardiovascular Cardiovascular: Reports chest pain and Reports dyspnea on exertion Respiratory Respiratory: Denies cough and Reports dyspnea on exertion Gastrointestinal Gastrointestinal: Reports no additional gastrointestinal complaints Musculoskeletal Musculoskeletal: Reports no additional musculoskeletal complaints Neurologic Neurologic: Reports system reviewed and no additional complaints, except as documented Endocrine Endocrine: Reports no additional endocrine complaints Hematologic/Lymphatic Hematologic/Lymphatic: Reports no additional hematologic/lymphatic complaints Physical Exam Vital Signs: Vital Signs: Last Vital Signs Temp 98.5 F 04/27/20 12:00 Pulse 61 04/27/20 12:00 Resp 20 04/27/20 12:00 BP 106/58 L 04/27/20 12:00 Pulse Ox 94 04/27/20 12:00 Body Mass Index 32.7 Const: General: cooperative and no acute distress Orientation/consciousness: patient oriented x3 Eyes: General: appearance normal, both eyes and all related structures Pupils: Equal, round and reactive pupils present Resp: Effort & Inspection: normal respiratory effort and able to speak in complete sentences Auscultation: clear to auscultation bilaterally Cardio: Other: irregular rhythm, with a heart rate of 110s to 140s GI: Palpation (GI): Soft to palpation Auscultation: normal bowel sounds Skin: General skin exam: no rashes or lesions noted Neuro: General: patient oriented x3 Cranial nerves: Yes Equal, round and reactive pupils present Cognition (Neuro): normal cognition Extrem: General: Yes normal to inspection and Yes no pedal edema Objective Data Current Medications Generic Name Dose Route Start Last Admin Trade Name Freq PRN Reason Stop Dose Admin Acetaminophen 650 mg 04/23/20 06:08 Acetaminophen 325 Mg Tablet PO Q6H PRN Pain, Mild (Pain Scale 1-3) Hydrocodone Bitart/Acetaminophen 1 tab 04/23/20 04:03 Hydrocodone Bit/Acetam 7.5/325 Tablet PO Q6H PRN Pain, Moderate (Pain Scale 4-6 Amiodarone HCl 400 mg 04/25/20 10:25 04/27/20 08:30 Amiodarone Hcl 200 Mg Tablet PO 400 mg BID OMAYRA Administration Docusate Sodium 100 mg 04/23/20 06:08 Docusate Sodium 100 Mg Capsule PO DAILY PRN Constipation Duloxetine HCl 30 mg 04/23/20 09:00 04/27/20 08:28 Duloxetine Hcl 30 Mg Capsule.Dr PO 30 mg DAILY OMAYRA Administration Fentanyl 12 mcg 04/23/20 09:00 04/26/20 10:13 Fentanyl 12 Mcg Patch.Td72 TRANSDERMA Not Given Q3D [facility] Insulin Human Lispro 0 unit 04/23/20 07:30 04/27/20 12:01 Insulin Lispro 100 Unit/Ml 3 Ml Vial SUBCUT Not Given QIDACHS [facility] Protocol Lorazepam 0.5 mg 04/23/20 04:03 Lorazepam 0.5 Mg Tablet PO TID PRN Sleep Lorazepam 1 mg 04/23/20 04:03 04/23/20 20:11 Lorazepam 1 Mg Tablet PO 1 mg BEDTIME PRN Administration Anxiety Magnesium Hydroxide 30 ml 04/23/20 06:08 Milk Of Magnesia 30 Ml Oral.Susp PO DAILY PRN Constipation Metoprolol Tartrate 25 mg 04/26/20 21:00 04/27/20 08:29 Metoprolol Tartrate 12.5 Mg Halftab PO 25 mg BID [facility] Administration Protocol Morphine Sulfate 30 mg 04/23/20 09:00 04/27/20 09:36 Morphine Sulfate Er 30 Mg Tablet.Er PO 30 mg Q12H OMA[facility] Administration Omeprazole 20 mg 04/23/20 09:00 04/27/20 08:28 Omeprazole 20 Mg Capsule.Dr PO 20 mg BID OMA[facility]RA Administration Ondansetron HCl 4 mg 04/23/20 06:08 04/26/20 20:48 Ondansetron Hcl 4 Mg/2 Ml Vial IVPUSH 4 mg Q8H PRN Administration Nausea and Vomiting Rivaroxaban 15 mg 04/23/20 09:00 04/27/20 08:28 Rivaroxaban 15 Mg Tablet PO 15 mg DAILY OMAYRA Administration Sodium Chloride 3 ml 04/23/20 08:00 04/27/20 08:30 0.9 % Sodium Chloride Flush 3 Ml Syringe IVFLUSH 3 ml QSHIFT [facility] Administration Tiotropium [place] 1 puff 04/25/20 09:00 04/26/20 08:12 Tiotropium [place] 18 Mcg Cap.W.Dev INHALE 1 puff DAILY OMAYRA Administration Trazodone HCl 50 mg 04/23/20 21:00 04/26/20 20:40 Trazodone Hcl 50 Mg Tablet PO 50 mg BEDTIME OMAYRA Administration Zolpidem Tartrate 10 mg 04/23/20 23:00 04/26/20 21:46 Zolpidem Tartrate 5 Mg Tablet PO 10 mg BEDTIME OMAYRA Administration Labs CBC & Chem 7: 04/27/20 06:07 04/27/20 06:07 Assessment and Plan (1) Atrial fibrillation with rapid ventricular response: Status: Acute (2) History of CHF (congestive heart failure): Status: Acute (3) Hypertension: Status: Acute (4) DVT (deep venous thrombosis): Status: Acute (5) Fibromyalgia: Status: Acute (6) Diabetes mellitus type 2 in obese: Status: Acute (7) Small cell lung cancer: Status: Acute Assessment and Plan: 74 year old female with past medical history as above who presents to the hospital with palpitations found to have AFib with RVR. AFib with RVR Converted to sinus currently patient has multiple episodes of back and forth in AFib during hospital stay continue metoprolol continue amiodarone 400 mg b.i.d. for 2 weeks then 200 mg daily plan for echocardiogram today per Cardiology rule out pericardial effusion will repeat EKG Continue Xarelto congestive heart failure mildly elevated BNP Lasix on hold for low blood pressure plan for repeat echocardiogram today Dizziness Could be secondary to orthostatic hypotension Will repeat orthostasis today mild Hyponatremia Sodium of 133, stable Likely result of medications continue to monitor bilateral infiltrates CT scan showing old scary, no active disease Identified anemia Baseline around 9 Continue to monitor hypertension stable continue Lopressor diabetes type 2 Hold metformin Low-dose sliding scale insulin diabetic diet Small cell lung cancer continue pain control continue current treatment outpatient Fibromyalgia continue duloxetine anxiety continue lorazepam DVT prophylaxis Xarelto
[2020-04-27 16:29] LABS: Glucose, Whole Blood 96 mg/dL (60-115)
[2020-04-27 18:39] LABS: Glucose, Whole Blood 95 mg/dL (60-115)
[2020-04-27 20:50] LABS: Glucose, Whole Blood 100 mg/dL (60-115)
[2020-04-27] MEDS: Zolpidem Tartrate 5 MG TABLET 10 MG PO (21:43)
[2020-04-27] MEDS: traZODone HCL 50 MG TABLET PO (21:43)
[2020-04-28] MEDS: 0.9 % Sodium Chloride Flush 3 ML SYRINGE IVFLUSH ×2 (00:16→08:52)
[2020-04-28 03:26] VITALS: BP 99/54; PULSE 81; RESP 18; TEMP 37; O2SAT 98
[2020-04-28 05:24] VITALS: BMI 32.9
[2020-04-28 07:39] LABS: Glucose, Whole Blood 106 mg/dL (60-115)
[2020-04-28 08:00] VITALS: BP 100/60; PULSE 71; RESP 18; TEMP 36.9; O2SAT 94
[2020-04-28 08:32] VITALS: PULSE 68; O2SAT 92
[2020-04-28] MEDS: Omeprazole 20 MG CAPSULE.DR PO (08:52)
[2020-04-28] MEDS: Morphine Sulfate ER 30 MG TABLET.ER PO (08:52)
[2020-04-28] MEDS: DULoxetine HCl 30 MG CAPSULE.DR PO (08:52)
[2020-04-28] MEDS: Rivaroxaban 15 MG TABLET PO (08:52)
[2020-04-28] MEDS: Amiodarone HCL 200 MG TABLET 400 MG PO (08:52)
[2020-04-28] MEDS: Metoprolol Tartrate 12.5 MG HALFTAB 25 MG PO (08:53)
[2020-04-28 09:35] LABS: Eosinophils Absolute Auto 0.1 X10*3/uL (0.0-0.4); MANUAL DIFF FLAG SCAN; Mean Corpuscular Volume 100.4 fL (80-98); PLT CLUMP 1; Red Cell Distribution Width 12.8 % (11.0-16.0)
[2020-04-28 09:37] LABS: Eosinophils Percent Auto 5.9 % (0-4); Hematocrit 26.9 % (37-47); Hemoglobin 8.8 g/dl (12.0-16.0); Lymphocytes Absolute Auto 0.4 X10*3/uL (1.2-4.9); Lymphocytes Percent Auto 32.2 % (20-40); Mean Corpuscular HGB Conc 32.7 g/dl (31.0-35.0); Mean Corpuscular Hemoglobin 32.8 pg (27.0-33.0); Mean Platelet Volume 10.4 fL (9.4-12.3); Monocytes Absolute Auto 0.3 X10*3/uL (0.1-1.2); Monocytes Percent Auto 21.2 % (2-11); Neutrophils Absolute Auto 0.5 X10*3/uL (2.0-8.3); Neutrophils Percent Auto 40.7 % (45-73); Red Blood Count 2.68 X10*6/uL (4.20-5.50); SCAN SMEAR FLAG 1
[2020-04-28 09:41] LABS: Platelet Count 65 X10*3/uL (160-400); White Blood Count 1.2 X10*3/uL (4.8-10.8)
[2020-04-28 10:04] LABS: SLIDE REVIEW VERIFIED
[2020-04-28 10:06] LABS: Anion Gap 12 (12-20); Blood Urea Nitrogen 20 mg/dL (9-16); Calcium 8.3 mg/dL (8.4-10.2); Carbon Dioxide 30 mmol/L (22-29); Chloride 95 mmol/L (96-108); Estimated Glomerular Filt Rate 42; Glucose Random 102 mg/dL (60-115); Potassium 4.1 mmol/l (3.3-5.1); Sodium 133 mmol/L (135-145)
--- NOTE | 2020-04-28 10:20 | P.CDIC_ITS ---
CDI Concurrent Query Service Date: 04/28/20 Documentation Clarification: Please clarify if you are treating a proba ble/suspected/likely or confirmed: Chronic diastolic and/or systolic Congestive heart failure Acute on chronic diastolic and/or systolic Congestive heart failure Please specify if known Provider Response: Acute on Chronic Diastolic and/or Systolic CHF PLEASE DO NOT DELETE/MODIFY EXISTING CONTENT Additional information is needed in order to code to the highest accuracy and appropriate Severity of Illness (SOI). Please clarify the information noted below in your progress notes and discharge summary. Risk Factors/Clinical Indicators/Treatments PMH CHF BNP [address] H First Echo within normal limits. CHF, mild elevated BNP, Lasix on hold due to low BP. CXR bilateral opacities CDS: Lanette King CCS, CDIS Contact Number: [phone] Please Review the information above and exercise your independent professional judgment in responding to the query. If you concur, pleas document in the PROGRESS NOTES and DISCHARGE SUMMARY. If you do not agree with the query, please document in the query above. THIS QUERY IS PART OF THE PERMANENT MEDICAL RECORD
[2020-04-28 12:03] LABS: Glucose, Whole Blood 112 mg/dL (60-115)
[2020-04-28 12:11] VITALS: BP 109/59; PULSE 62; RESP 18; TEMP 36.6; O2SAT 94
--- NOTE | 2020-04-28 13:00 | CA_ITS ---
Transthoracic Echocardiogram Patient (Last, First, Middle): Hilda Medrano, Gender: Female Date of : 1945 Age: 74 Procedure Date: 04/28/2020 Procedure Type: Transthoracic Echocardiogram Location: OP Height: 157.48 cm Weight: 80.74 kg BSA: 1.82 m2 Heart Rate: bpm BP: 126 / 58 mmHg Recruiting Manager: ELANA Referring MD: Nilay Ghosh MD Symptoms: afib with RVR Findings Prior Study Comparison No prior study available for comparison. Measurements 2D Linear Measurements IVSd: 0.97 0.6-0.9/0.6-1.0 cm LVIDd: 5.05 3.9-5.3/4.2-5.9 cm LVIDd Index: 2.77 2.4-3.2/2.2-3.1 cm/m2 LVIDs: 3.05 2.0-3.6 cm LVPWd: 0.82 0.7-1.1 cm Ao Root: 3.40 2.1-3.5 cm LA Diam: 3.50 2.7-3.8/3.0-4.0 cm LAIDs Index: 1.92 1.5-2.3 cm/m2 LV Mass: 199.31 67-162/88-224 g LV Mass Index: 109.51 43-95/49-115 g/m2 LVOT Diam: 2.10 3.0+(-)1.3 cm 2D Systolic Function EF 4C: 62.70 >55% EF 2C: 54.70 >55% EF BiP: 58.40 >55% Mitral Valve MV Pk E: 0.73 MV PK A: 0.83 MV Decel Time: 232.00 E/A: 0.90 E'Lateral: 7.35 E'Medial: 5.51 E/E' Med: 13.20 E/E' Lat: 9.90 PHT: 68.00 MVA PHT: 3.24 Decel [place]: 3.13 Aortic Valve AoV Pk [place]: 1.34 AoV Pk Grad: 7.00 LVOT LVOT Pk [place]: 1.03 LVOT Mn [place]aji: 0.69 LVOT VTI: 0.17 LVOT Pk Grad: 4.00 LVOT Mn Grad: 2.00 LVOT Diam: 2.10 LVOT Area: 3.46 Diastolic Function MV Pk E: 0.73 MV Pk A: 0.83 E/A: 0.90 E'Medial: 5.51 E/E' Med: 13.20 E' Laterial: 7.35 E/E' Lat: 9.90 Tricuspid Valve TR Pk [place]aji: 2.39 TR Pk Grad: 23.00 RA Press: 3.00 RVSP: 26.00 Great Vessels Aorta Ao Root-2D: 3.40 2.0-3.7 cm Ao Asc: 3.60 2.1-3.4 cm Updated in Other Vendor System with Status of Preliminary
--- NOTE | 2020-04-28 14:46 | P.DS_ITS ---
DS: Providers Provider Date of admission: 04/23/20 03:51 Primary care physician: Rad Jane MD Consults: 04/23/20 06:08 Consult to Cardiology Routine Consulting Provider: Garry Liu Reason for consultation: new onset A.fib Has provider been notified: No 04/28/20 14:15 Consult to Gastroenterology Routine Consulting Provider: Glendy Palafox Reason for consultation: difficulty swallowing DS: Diagnosis Discharge Diagnosis (1) Atrial fibrillation with rapid ventricular response: Status: Acute (2) History of CHF (congestive heart failure): Status: Acute (3) Hypertension: Status: Acute (4) DVT (deep venous thrombosis): Status: Acute (5) Fibromyalgia: Status: Acute (6) Diabetes mellitus type 2 in obese: Status: Acute (7) Small cell lung cancer: Status: Acute DS: Medications Discharge Medications Home Medications: Home Medications Medication Instructions Recorded Confirmed Spiriva with HandiHaler 1 cap INHALATION DAILY 04/23/20 04/23/20 Xarelto 1 tab PO DAILY 04/23/20 04/23/20 albuterol sulfate 1 inh INHALATION QID PRN 04/23/20 04/23/20 budesonide-formoterol [Symbicort] 2 puff INHALATION BID 04/23/20 04/23/20 dexamethasone 4 mg PO BID 04/23/20 04/23/20 diphenhydramine HCl [M-Dryl] 12.5 mg PO QID PRN 04/23/20 04/23/20 duloxetine 1 cap PO DAILY 04/23/20 04/23/20 fentanyl 1 patch TOPICAL Q3D 04/23/20 04/23/20 hydrocodone-acetaminophen 1 tab PO Q6H PRN 04/23/20 04/23/20 lorazepam 1 tab PO BEDTIME PRN 04/23/20 04/23/20 lorazepam 1 tab PO TID PRN 04/23/20 04/23/20 metformin 1 tab PO BID 04/23/20 04/23/20 morphine 1 tab PO Q12H 04/23/20 04/23/20 omeprazole 1 cap PO BID 04/23/20 04/23/20 pravastatin 40 mg PO BEDTIME 04/23/20 04/23/20 trazodone 1 - 2 tab PO BEDTIME 04/23/20 04/23/20 zolpidem 1 tab PO BEDTIME PRN 04/23/20 04/23/20 Previous Rx's Medication Instructions Recorded amiodarone 400 mg PO BID #60 tab 04/28/20 metoprolol tartrate 25 mg PO BID #60 tab 04/28/20 DS: Summary Hospital Course Hospital Course: HPI from admission 89-year-old female with past medical history stage IV small cell lung cancer , DVT on Xarelto, hypertension fibromyalgia, diabetes, autoimmune disease who presents to the hospital with complaints of palpitation. Patient reports that on Monday she started feeling chest tightness which was localized midsternally, felt like heavy pressure like, radiating to the left arm, associated with shortness of breath. This chest pain occurred at rest with no relieving factors. Intermittent. patient reports that on Monday she went to her education instructor oncologist's office to start a new chemo and at their office was found to have a fluctuating heart rate between 33-177. Patient was feeling dizzy but had no chest pain at that time and no shortness of breath. She was sent back to the hospital and was diagnosed with AFib. Patient reports that her Xarelto was adjusted and her diltiazem was increased from 120-180 mg daily. Patient reports that she returned to the hospital today because she measured her heart rate prior to to going to bed and found to be in the 140s to 150s with dizziness. She currently has no shortness of breath, no chest pain, no dizziness, no cough or sputum production. She has no fever or chills. She reports nausea with no vomiting. No abdominal pain. No diarrhea but has constipation, no urinary symptoms and no lower extremity edema. No sick contacts and no recent travel. on arrival to the ED patient's heart rate was found to be 144, blood pressure 110/80 otherwise hemodynamically stable Labs are significant for hemoglobin of 9.8, hematocrit of 29.2,MCV of 101, platelet count of 123, PT of 13.8, INR of 1.2, sodium of 130, chloride of 95, BUN of 20, with a creatinine of 1.31, troponin of less than 3.5, BNP pending, chest x-ray shows patchy bilateral airspace opacities hospital course 74-year-old female admitted with AFib with RVR patient was started on Cardizem drip and continued on Xarelto, patient initially converted to sinus rhythm but again went into AFib with RVR, cardiology was consulted, patient has frequent episodes of AFib with RVR sponataneously converting back to sinus and again to afib , cardiology recommended loading with amiodarone, patient was loaded with amiodarone, patient remains in sinus rhythm, heart rate remained stable, echocardiogram was done , cardiology recommended amiodarone 400 mg twice a day for 2 weeks and then 200 mg daily and continue metoprolol 25 b.i.d., patient was stable discharged on p.o. amiodarone and metoprolol and continued on Xarelto, patient will follow up cardiology as outpatient Time Spent with Patient Time attestation: Total time spent providing and/or coordinating discharge services: Physical Exam Vital Signs: Vital Signs: Last Vital Signs Temp 97.9 F 04/28/20 12:11 Pulse 62 04/28/20 12:11 Resp 18 04/28/20 12:11 BP 109/59 L 04/28/20 12:11 Pulse Ox 94 04/28/20 12:11 Body Mass Index 32.9 DS: Data Data Completed and Pending Labs on day of discharge: 04/23/20 01:50 ECG 12 lead EKG Stat XR chest 1V Stat dilTIAZem HCL [Cardizem] 10 mg IVPUSH NOW STA 04/23/20 01:51 EKG Documentation DIRECTED 04/23/20 01:56 dilTIAZem HCL [Cardizem] 125 mg IVCONT .STK-MED ONE 04/23/20 02:00 B Type Natriuretic Peptide Stat Basic Metabolic Panel Stat Complete Blood Count Auto Diff Stat Liver Panel Stat Partial Thromboplastin Time Stat Prothrombin Time INR Stat SLIDE REVIEW Stat Troponin-I High Sensitivity Stat 0.9 % Sodium Chloride [Ns] 100 ml dilTIAZem HCL [Cardizem] 125 mg IVCONT Per Protocol mg/hr 04/23/20 02:11 dilTIAZem HCL [Cardizem] 20 mg IVPUSH NOW STA 04/23/20 03:20 CT chest wo con Stat 04/23/20 03:34 LORazepam [Ativan] 1 mg PO ONCE ONE 04/23/20 03:45 SARS-CoV2/FLU/RSV Stat 04/23/20 03:48 Transfer Order Routine 04/23/20 03:54 Add Laboratory Test Stat 04/23/20 04:03 HYDROcodone Bit/Acetam 7.5/325 [[place] 7.5/325] 1 tab PO Q6H PRN LORazepam [Ativan] 0.5 mg PO TID PRN LORazepam [Ativan] 1 mg PO BEDTIME PRN 04/23/20 06:15 Vitamin B12 and Folate Routine 04/23/20 07:45 Glucose, Whole Blood Routine 04/23/20 09:00 Morphine Sulfate ER [MS Contin] 30 mg PO Q12H Tiotropium [place] [Spiriva] 1 puff INHALE DAILY fentaNYL [Duragesic] 12 mcg TRANSDERMA Q3D hydroCHLOROthiazide [Microzide] 25 mg PO DAILY 04/23/20 09:45 dilTIAZem HCL CD [Cardizem CD] 240 mg PO DAILY 04/23/20 Breakfast Cardiac Diet Diabetic Diet 04/23/20 11:24 Glucose, Whole Blood Routine 04/23/20 11:55 Furosemide [Lasix] 20 mg IVPUSH ONCE ONE 04/23/20 14:51 ECG 12 lead EKG Routine 04/23/20 19:43 ECG 12 lead EKG Stat 04/23/20 19:44 EKG Documentation DIRECTED Metoprolol Tartrate [Lopressor] 5 mg IVPUSH ONCE ONE 04/23/20 20:23 Glucose, Whole Blood Routine 04/23/20 22:15 0.9 % Sodium Chloride [Ns] 100 ml dilTIAZem HCL [Cardizem] 125 mg IVCONT Per Protocol mg/hr 04/23/20 22:38 dilTIAZem HCL [Cardizem] 125 mg IVCONT .STK-MED ONE 04/23/20 23:45 Metoprolol Tartrate [Lopressor] 12.5 mg PO BID 04/23/20 23:53 ECG 12 lead EKG Stat EKG Documentation DIRECTED 04/24/20 04:46 Basic Metabolic Panel Routine Liver Panel Routine Thyroid Stimulating Hormone Routine 04/24/20 04:52 Complete Blood Count Auto Diff Routine 04/24/20 07:43 Glucose, Whole Blood Routine 04/24/20 07:56 ECG 12 lead EKG Routine 04/24/20 09:00 Metoprolol Tartrate [Lopressor] 25 mg PO BID 04/24/20 10:55 Furosemide [Lasix] 20 mg PO DAILY 04/24/20 11:15 Glucose, Whole Blood Routine 04/24/20 11:45 Add Laboratory Test Urgent 04/24/20 13:28 Metoprolol Tartrate [Lopressor] 25 mg PO ONCE ONE 04/24/20 16:09 Glucose, Whole Blood Routine 04/24/20 20:30 Glucose, Whole Blood Routine 04/24/20 21:00 Metoprolol Tartrate [Lopressor] 50 mg PO BID 04/25/20 06:19 Basic Metabolic Panel DAILY@0600 Complete Blood Count no Diff DAILY@0600 04/25/20 07:39 Glucose, Whole Blood Routine 04/25/20 09:00 dilTIAZem HCL CD [Cardizem CD] 180 mg PO DAILY 04/25/20 11:32 Glucose, Whole Blood Routine 04/25/20 16:23 Glucose, Whole Blood Routine 04/25/20 20:25 Glucose, Whole Blood Routine 04/26/20 07:44 Glucose, Whole Blood Routine 04/26/20 11:27 0.9 % Sodium Chloride [Ns] 500 ml IV 500 mls/hr 04/26/20 11:35 Glucose, Whole Blood Routine 04/26/20 16:45 Glucose, Whole Blood Routine 04/26/20 21:41 Glucose, Whole Blood Routine 04/27/20 06:07 Basic Metabolic Panel DAILY@0600 Complete Blood Count no Diff DAILY@0600 Magnesium Routine 04/27/20 07:24 Glucose, Whole Blood Routine 04/27/20 11:14 Glucose, Whole Blood Routine 04/27/20 14:51 EKG Documentation DIRECTED 04/27/20 16:26 Glucose, Whole Blood Routine 04/27/20 18:35 Glucose, Whole Blood Routine 04/27/20 20:46 Glucose, Whole Blood Routine 04/28/20 07:31 Glucose, Whole Blood Routine 04/28/20 07:56 EKG Documentation DIRECTED 04/28/20 09:03 Basic Metabolic Panel Routine Complete Blood Count Auto Diff Routine SLIDE REVIEW Routine 04/28/20 11:58 Glucose, Whole Blood Routine 04/28/20 13:00 CA echo transthoracic complete Routine Laboratory Last Values WBC 1.2 X10*3/uL (4.8-10.8) L 04/28/20 09:03 RBC 2.68 X10*6/uL (4.20-5.50) L 04/28/20 09:03 Hgb 8.8 g/dl (12.0-16.0) L 04/28/20 09:03 Hct 26.9 % (37-47) L 04/28/20 09:03 MCV 100.4 fL (80-98) H 04/28/20 09:03 MCH 32.8 pg (27.0-33.0) 04/28/20 09:03 MCHC 32.7 g/dl (31.0-35.0) 04/28/20 09:03 RDW 12.8 % (11.0-16.0) 04/28/20 09:03 Plt Count 65 X10*3/uL (160-400) L 04/28/20 09:03 MPV 10.4 fL (9.4-12.3) 04/28/20 09:03 Immature Gran % (Auto) 0.0 % (0.0-0.4) 04/28/20 09:03 Neut % (Auto) 40.7 % (45-73) L 04/28/20 09:03 Lymph % (Auto) 32.2 % (20-40) 04/28/20 09:03 [place] % (Auto) 21.2 % (2-11) H 04/28/20 09:03 Eos % (Auto) 5.9 % (0-4) H 04/28/20 09:03 Baso % (Auto) 0.0 % (0-2) 04/28/20 09:03 Lymph # (Auto) 0.4 X10*3/uL (1.2-4.9) L 04/28/20 09:03 [place] # (Auto) 0.3 X10*3/uL (0.1-1.2) 04/28/20 09:03 Eos # (Auto) 0.1 X10*3/uL (0.0-0.4) 04/28/20 09:03 Baso # (Auto) 0.0 X10*3/uL (0.0-0.2) 04/28/20 09:03 Abs Immat Gran (auto) 0.00 X10*3/uL (0.00-0.03) 04/28/20 09:03 Absolute Neuts (auto) 0.5 X10*3/uL (2.0-8.3) L 04/28/20 09:03 Absolute Nucleated RBC 0.000 X10*3/uL (0.0-0.012) 04/28/20 09:03 Nucleated RBC % (auto) 0.0 /100WBC (0.0-0.2) 04/28/20 09:03 Smear Tech's Comments VERIFIED 04/28/20 09:03 Smear Path Review SEE NOTE 04/27/20 06:07 PT 13.8 SEC (10.8-13.0) H 04/23/20 02:00 INR 1.2 (0.9-1.1) H 04/23/20 02:00 APTT 38.6 SEC (24.1-38.0) H 04/23/20 02:00 Sodium 133 mmol/L (135-145) L 04/28/20 09:03 Potassium 4.1 mmol/l (3.3-5.1) 04/28/20 09:03 Chloride 95 mmol/L (96-108) L 04/28/20 09:03 Carbon Dioxide 30 mmol/L (22-29) H 04/28/20 09:03 Anion Gap 12 (-20) 04/28/20 09:03 BUN 20 mg/dL (9-16) H 04/28/20 09:03 Creatinine 1.26 mg/dL (0.5-1.4) 04/28/20 09:03 Estim Creat Clear Calc 40.0 04/28/20 09:03 Estimated GFR 42 04/28/20 09:03 POC Glucose 112 mg/dL (60-115) 04/28/20 11:58 Random Glucose 102 mg/dL (60-115) 04/28/20 09:03 Calcium 8.3 mg/dL (8.4-10.2) L 04/28/20 09:03 Magnesium 1.9 mg/dL (1.6-2.6) 04/27/20 06:07 Total Bilirubin 0.3 mg/dL (0.0-1.0) 04/24/20 04:46 Direct Bilirubin < 0.2 mg/dL (0.0-0.5) 04/24/20 04:46 AST 21 U/L (5-31) 04/24/20 04:46 ALT 25 U/L (0-31) 04/24/20 04:46 Alkaline Phosphatase 54 U/L (39-117) 04/24/20 04:46 Troponin I High Sens < 3.5 ng/L (<3.5-17.0) 04/23/20 02:00 B-Natriuretic Peptide 252 pg/mL (<100) H 04/23/20 02:00 Total Protein 6.1 g/dL (6.5-8.0) L 04/24/20 04:46 Albumin 3.8 g/dL (3.5-5.0) 04/24/20 04:46 Vitamin B12 309 pg/mL (200-900) 04/23/20 06:15 Folate 9.6 ng/mL (> or = 4.0) 04/23/20 06:15 TSH 2.55 uIU/mL (0.32-4.0) 04/24/20 04:46 Coronavirus (PCR) NEGATIVE (Negative) 04/23/20 03:45 Influenza Type A (PCR) NEGATIVE (Negative) 04/23/20 03:45 Influenza Type B (PCR) NEGATIVE (Negative) 04/23/20 03:45 RSV RNA Qual (PCR) NEGATIVE (Negative) 04/23/20 03:45 Discharge Plan Discharge Anticipated Discharge Date/Time: 04/28/20 14:33 Patient Disposition: Home, Self-Care Referrals: Rad Jane MD [Primary Care Provider] - Discharge Medications: New amiodarone 200 mg tablet 400 mg PO BID Qty: 60 RF: 0 metoprolol tartrate 25 mg tablet 25 mg PO BID Qty: 60 RF: 0 Continued diphenhydramine HCl [M-Dryl] 12.5 mg/5 mL liquid 12.5 mg PO QID PRN (Reason: Allergic Symptoms) RF: 0 metformin 500 mg tablet 1 tab PO BID RF: 0 trazodone 50 mg tablet 1 - 2 tab PO BEDTIME RF: 0 pravastatin 40 mg tablet 40 mg PO BEDTIME RF: 0 morphine 30 mg tablet extended release 1 tab PO Q12H RF: 0 lorazepam 0.5 mg tablet 1 tab PO TID PRN (Reason: Sleep) RF: 0 hydrocodone-acetaminophen 7.5-325 mg tablet 1 tab PO Q6H PRN (Reason: pain) RF: 0 dexamethasone 4 mg tablet 4 mg PO BID RF: 0 omeprazole 20 mg capsule,delayed release(DR/EC) 1 cap PO BID RF: 0 lorazepam 1 mg tablet 1 tab PO BEDTIME PRN (Reason: Anxiety) RF: 0 zolpidem 10 mg tablet 1 tab PO BEDTIME PRN (Reason: insomnia) RF: 0 albuterol sulfate 90 mcg/actuation HFA aerosol inhaler 1 inh inhalation QID PRN (Reason: Shortness Of Breath Or Wheezing) RF: 0 Spiriva with HandiHaler 18 mcg capsule, w/inhalation device 1 cap inhalation DAILY RF: 0 duloxetine 30 mg capsule,delayed release(DR/EC) 1 cap PO DAILY RF: 0 fentanyl 12 mcg/hr patch 72 hour 1 patch topical Q3D RF: 0 budesonide-formoterol [Symbicort] 160-4.5 mcg/actuation HFA aerosol inhaler 2 puff inhalation BID RF: 0 Xarelto 15 mg tablet 1 tab PO DAILY RF: 0 Discontinued diltiazem HCl 180 mg capsule,extended release 24hr 1 cap PO DAILY RF: 0 hydrochlorothiazide 25 mg tablet 1 tab PO DAILY RF: 0 Discharge Orders: Discharge Order (Routine); Ordered 04/28/20 Ordered By: Nilay Ghosh Diet: advance to usual diet Activity on Discharge: As tolerated Discharge Date/Time: 04/28/20 18:10 Visit Report Forms: Patient Portal Discharge page Care Plan Goals: treat AFib Health Concerns: recurrent AFib with RVR Plan of Treatment: p.o. amiodarone and metoprolol
--- NOTE | 2020-04-28 14:49 | MHC.CM.PN ---
Patient has been medically cleared for dc to home today, no services. Second IMM addressed with Patient and the original has been given to her and a copy has been placed on the chart. Patient is aware of and in agreement with the dc plan.
[2020-04-28 16:00] VITALS: BP 91/51; PULSE 62; RESP 18; TEMP 37.1; O2SAT 95
[2020-04-28 16:50] LABS: Glucose, Whole Blood 101 mg/dL (60-115)
== END 2020-04-28 18:10 | disposition home or self-care (01) | DRG 309 ==
LOC: HO.ED 04:04 → HO.IMC 05:09
PROVIDERS: Internal Medicine Cardiovascular Disease; Student in an Organized Health Care Education/Training Program; Admitting Provider Internal Medicine; Emergency Provider Emergency Medicine; PCP Internal Medicine; Visit Provider Internal Medicine
DX: I48.91 Unspecified atrial fibrillation (principal); C34.90 Malignant neoplasm of unspecified part of unspecified bronchus or lung; E87.1 Hypo-osmolality and hyponatremia; M79.7 Fibromyalgia; E66.9 Obesity, unspecified; Z68.32 Body mass index [BMI] 32.0-32.9, adult; E11.9 Type 2 diabetes mellitus without complications; F41.9 Anxiety disorder, unspecified; I50.9 Heart failure, unspecified; Z20.828 Contact with and (suspected) exposure to other viral communicable diseases; Z88.2 Allergy status to sulfonamides; Z79.01 Long term (current) use of anticoagulants; Z79.891 Long term (current) use of opiate analgesic; Z79.899 Other long term (current) drug therapy
CPT/HCPCS: 0241U; 36415; 71045; 71250; 80048; 80076; 82607; 82746; 82947; 83735; 83880; 84443; 84484; 85025; 85027; 85060; 85610; 85730; 93005; 93306; 96374; 96376; 99285; 99291; J1940; J2405

== ENCOUNTER 2020-05-12 14:07 | Outpatient (REF) | payer MEDICARE, SELFPAY | END 2020-05-12 14:08 | disposition home or self-care (01) | LOC: HO.LAB 14:07 | PROVIDERS: Visit Provider Internal Medicine | DX: Z20.828 Contact with and (suspected) exposure to other viral communicable diseases (principal) | CPT/HCPCS: C9803; U0003 ==